=== PATIENT | male | born 1935 | race Caucasian/White ===

== ENCOUNTER → 2018-04-06 09:03 | Outpatient (CLI) | payer MEDICARE, OTHER, SELFPAY ==
[2018-04-06 09:50] LABS: Add Manual Diff / Slide Review NO; Basophils Percent Auto 0.4 % (0-2); Eosinophils Percent Auto 0.8 % (2-4); Hemoglobin 15.4 g/dL (13.5-17.5); Lymphocytes Percent Auto 26.8 % (25-40); Mean Corpuscular HGB Conc 33.5 % (30-36); Mean Corpuscular Volume 86.5 fL (80-100); Monocytes Percent Auto 7.9 % (3-14); Neutrophils Absolute Auto 3800 /uL (3000-5900); Neutrophils Percent Auto 64.1 % (50-75); Platelet Count 199 X10^3/uL (150-400); Red Blood Cell Count 5.32 X10^6/uL (4.5-5.9); Red Cell Distribution Width 14.2 % (11.6-14.8); White Blood Cell Count 5.9 X10^3/uL (4.5-11.0)
[2018-04-06 10:25] LABS: Alanine Aminotransferase 22 IU/L (21-72); Albumin Globulin Ratio 1.3 (1.0-2.8); Alkaline Phosphatase 52 U/L (38-126); Aspartate Aminotransferase 20 IU/L (17-59); Bilirubin Total 0.7 mg/dL (0.2-1.3); Blood Urea Nitrogen 16 mg/dL (9-20); Calcium 9.3 mg/dL (8.4-10.2); Carbon Dioxide 29 mmol/L (22-32); Chloride 102 mmol/L (98-107); Cholesterol 174 mg/dL (140-199); Estimated Glomerular Filt Rate > 60.0 mL/min (>60); Glucose 99 mg/dL (80-110); HDL Cholesterol 57 mg/dL (40-60); HEMOLYSIS < 15 (0-50); LDL Cholesterol Calculated 94 mg/dL (<100); Potassium 4.6 mmol/L (3.4-5.1); Sodium 142 mmol/L (137-145); Triglycerides 115 mg/dL (35-150)
== END ==
PROVIDERS: Visit Provider Internal Medicine
DX: I10 Essential (primary) hypertension (principal); M15.0 Primary generalized (osteo)arthritis
CPT/HCPCS: 36415; 80053; 80061; 85025

== ENCOUNTER → 2018-09-28 08:41 | Outpatient (CLI) | payer MEDICARE, OTHER, SELFPAY ==
--- NOTE | 2018-09-28 | DI.MRI.S_ITS ---
PROCEDURE: MR LUMBAR SPINE WO CON INDICATIONS: LUMBAR REGION RADICULOPATHY TECHNIQUE: Noncontrast sagittal T1 spin echo and T2 fast echo, sagittal STIR, axial T1 and T2 fast spin echo through the lumbar spine. In cases with scoliosis, additional coronal T2 fast spin echo may be performed. COMPARISON: [facility], MR, MR LUMBAR SPINE WITHOUT CONTRAST, 08/17/2017, 15:29. FINDINGS: Image quality: Excellent. Alignment and Curvature: Levocurvature of lumbar spine Bone Marrow: Marrow is of normal overall signal. Multiple chronic appearing Schmorl's nodes. There is possible L5 compression fracture, although the appearance may be related to large Schmorl's node. Overall appearance is grossly unchanged. No acute marrow edema is seen. No acute vertebral body compression fractures. Spinal Cord: Conus medullaris terminates at the T12-L1 level. Visualized cord demonstrates normal signal and size. Paraspinous Soft Tissues: No paravertebral masses. Small T2 hyperintense presumed parapelvic cysts L1-L2: Broad-based right lateral disc bulge. Bilateral facet arthropathy. Mild central canal narrowing. There is partial effacement of the right lateral recess. The left lateral recess appears grossly patent. Severe right and moderate left foraminal narrowing. No interval change L2-L3: Broad-based posterior disc bulge and bilateral facet arthropathy. Mild central canal narrowing. Partial effacement of the lateral recesses, although mildly asymmetric right greater than left however this appears unchanged. Mild left and moderate right foraminal narrowing, no interval change L3-L4: Broad-based posterior disc bulge and bilateral facet disease. Dorsal epidural lipomatosis also present and there is moderate to severe central canal narrowing. There is also symmetric moderate effacement of both lateral recesses, as before. Severe right and moderate left foraminal stenoses without interval change. L4-L5: Broad-based posterior disc bulge and bilateral facet arthropathy. Mild central canal narrowing. There is mild dorsal epidural lipomatosis. Mild symmetric partial effacement of both lateral recesses. Severe left and mild right foraminal narrowing, no interval change L5-S1: Mild broad-based posterior disc bulge and bilateral facet arthropathy. No high-grade canal stenosis. The lateral recesses appear grossly patent. Moderate to severe bilateral foraminal stenoses primarily within the cephalocaudad dimension as before. No interval change. IMPRESSION: Overall, no interval change in multilevel lumbar disc degeneration since 08/17/17 as detailed above by spinal level. Levoscoliosis. Dictated by: Tono Harrison M.D. on 09/28/2018 at 11:15 Approved by: Tono Harrison M.D. on 09/28/2018 at 11:33
== END ==
PROVIDERS: PCP Internal Medicine; Visit Provider Physical Medicine & Rehabilitation Pain Medicine
DX: M51.16 Intervertebral disc disorders with radiculopathy, lumbar region (principal); M51.17 Intervertebral disc disorders with radiculopathy, lumbosacral region; M48.061 Spinal stenosis, lumbar region without neurogenic claudication; M48.07 Spinal stenosis, lumbosacral region; M41.86 Other forms of scoliosis, lumbar region; M47.26 Other spondylosis with radiculopathy, lumbar region; M47.27 Other spondylosis with radiculopathy, lumbosacral region
CPT/HCPCS: 72148

== ENCOUNTER → 2019-10-02 11:11 | Outpatient (CLI) | payer MEDICARE, OTHER, SELFPAY ==
[2019-10-02 12:02] LABS: Add Manual Diff / Slide Review NO; Basophils Absolute Auto 0 /uL (0-100); Basophils Percent Auto 0.2 % (0-2); Eosinophils Absolute Auto 0 /uL (0-450); Eosinophils Percent Auto 0.7 % (2-4); Hematocrit 44.4 % (41-53); Hemoglobin 14.7 g/dL (13.5-17.5); Lymphocytes Absolute Auto 2000 /uL (1100-4500); Lymphocytes Percent Auto 29.8 % (25-40); Mean Corpuscular HGB Conc 33.2 % (30-36); Mean Corpuscular Hemoglobin 27.9 PG (26-34); Monocytes Absolute Auto 400 /uL (0-900); Monocytes Percent Auto 6.5 % (3-14); Neutrophils Absolute Auto 4100 /uL (1500-7000); Neutrophils Percent Auto 62.8 % (50-75); Platelet Count 219 X10^3/uL (150-400); Red Blood Cell Count 5.28 X10^6/uL (4.5-5.9); Red Cell Distribution Width 14.7 % (11.6-14.8); White Blood Cell Count 6.6 X10^3/uL (4.5-11.0)
[2019-10-02 12:18] LABS: Carbon Dioxide 27 mmol/L (22-32); Chloride 102 mmol/L (98-107); HEMOLYSIS < 15 (0-50); Potassium 4.1 mmol/L (3.4-5.1); Sodium 140 mmol/L (137-145)
== END ==
PROVIDERS: PCP Internal Medicine; Referring Provider Orthopaedic Surgery; Visit Provider Orthopaedic Surgery
DX: Z01.818 Encounter for other preprocedural examination (principal); Z01.812 Encounter for preprocedural laboratory examination
CPT/HCPCS: 36415; 80051; 85025; 93005

== ENCOUNTER → 2019-10-10 09:04 | Outpatient (CLI) | payer MEDICARE, OTHER, SELFPAY ==
--- NOTE | 2019-10-10 09:07 | DI.RAD.S_ITS ---
PROCEDURE: XR RIBS LT MIN 3V W CXR1V INDICATIONS: pain to anterior ribs 10-12, r/o fx TECHNIQUE: 2 views of the left ribs were acquired, along with a single view chest. COMPARISON: None. FINDINGS: Surgical changes and devices: None. Bones and chest wall: No fractures or dislocations. No suspicious bony lesions. Overlying soft tissues appear unremarkable. Lungs and pleura: No pleural effusions or pneumothorax. Lungs appear clear. Mediastinum: Mediastinal contours appear normal. Heart size is normal. Convex right thoracic spine scoliosis. IMPRESSION: No displaced rib fracture. Dictated by: Karen Hooper MD, PhD on 10/10/2019 at 9:59 Approved by: Karen Hooper MD, PhD on 10/10/2019 at 10:00
--- NOTE | 2019-10-10 09:07 | DI.RAD.S_ITS ---
PROCEDURE: XR HAND RT MIN 3V INDICATIONS: swelling/ecchymosis 3rd and 4th digit, r/o fx TECHNIQUE: 3 views of the hand(s) acquired. [facility]+ VIEWS BILATERAL, 02/13/2019, 13:52. FINDINGS: Bones: No acute fractures or dislocations. Carpal bones are normally aligned. No suspicious bony lesions. First and third MCP joint osteoarthritis. Soft tissues: No suspicious soft tissue calcifications. IMPRESSION: No fracture. No acute osseous lesion. If symptoms and/or clinical suspicion for pathology persists, further assessment with repeat radiographs (7-10 days) or advanced imaging (e.g. CT, MRI or bone scan) may be helpful. Dictated by: Karen Hooper MD, PhD on 10/10/2019 at 10:00 Approved by: Karen Hooper MD, PhD on 10/10/2019 at 10:03
== END ==
PROVIDERS: PCP Internal Medicine; Referring Provider Physician Assistant; Visit Provider Physician Assistant
DX: S20.212A Contusion of left front wall of thorax, initial encounter (principal); S60.221A Contusion of right hand, initial encounter; X58.XXXA Exposure to other specified factors, initial encounter
CPT/HCPCS: 71101; 73130

== ENCOUNTER 2020-12-15 23:24 | Observation (INO) | payer MEDICARE, OTHER, SELFPAY ==
--- NOTE | 2020-12-15 23:29 | DI.CT.S_ITS ---
PROCEDURE: CT HEAD/BRAIN WO CON INDICATIONS: Trauma TECHNIQUE: Noncontrast 4.5 mm thick angled axial sections acquired from the foramen magnum to the vertex, with coronal and sagittal reformats. For radiation dose reduction, the following was used: automated exposure control, adjustment of mA and/or kV according to patient size. COMPARISON: [facility], MR, STROKE PROTOCOL (PNL), 04/29/2011, 9:38. FINDINGS: Image quality: Excellent. CSF spaces: Basal cisterns are patent. No extra-axial fluid collections. The ventricles are symmetric in size and shape. Brain: No intracranial bleeds or masses. There is cerebral volume loss for age, with resultant ventricular and sulcal prominence. There are periventricular and deep white matter chronic small vessel ischemic changes. There is intracranial internal carotid artery atherosclerosis. Skull and face: Calvarium and visualized facial bones appear intact, without suspicious lesions. Sinuses: Visualized sinuses and mastoids are clear. IMPRESSION: No acute intracranial disease process. Dictated by: Karen Hooper MD, PhD on 12/16/2020 at 6:55 Approved by: Karen Hooper MD, PhD on 12/16/2020 at 6:56
--- NOTE | 2020-12-15 23:29 | DI.CT.S_ITS ---
PROCEDURE: CT CERVICAL SPINE WO CON INDICATIONS: Trauma TECHNIQUE: Noncontrast 3 mm thick sections acquired from the skull base to the T4 level. Sagittal and coronal reformats were then constructed. For radiation dose reduction, the following was used: automated exposure control, adjustment of mA and/or kV according to patient size. COMPARISON: None. FINDINGS: Image quality: Excellent. Bones: No cervical spine fractures or dislocations. Nondisplaced fracture of the anterior cortex of the posterior right 6th rib at the costovertebral junction. Visualized superior ribs are intact. Soft tissues: Prevertebral soft tissues are normal in thickness. No paravertebral hematomas. No apical pneumothoraces. 1.2 centimeter subpleural nodule noted in the right lung apex. Partially visualized hyperdense fluid collection noted in the right hemithorax concerning for hemothorax. IMPRESSION: 1. No cervical spine fracture. No acute osseous lesion. If symptoms and/or clinical suspicion for pathology persists, evaluation with MRI should be considered for further assessment. 2. Nondisplaced fracture of the posterior right 5th rib at the costovertebral junction. 3. Partially visualized right-sided pleural fluid collection which has slightly increased density concerning for hemothorax. 4. 1.2 centimeter right upper lobe nodule. Recommend follow-up CT scan of the chest in 3 months. Fleischner Society criteria for SOLID lung nodule followup. Nodule size (mm)Low-risk patientHigh-risk patient<6 (single or multiple)No routine followup.Optional CT at 12 months. 6-8 (single or multiple)CT at 6-12 months, then optional CT at 18-24 mo.CT at 6-12 months, then CT at 18-24 months. >8 (single)CT at 3 months, PET-CT, or biopsy. Same as for low-risk pts. >8 (multiple)CT at 3-6 months, then optional CT at 18-24 mo.CT at 3-6 months, then CT at 18-24 months. Recommendations do not apply to lung cancer screening, patients with immunosuppression, or patients with known primary cancer. Dictated by: Karen Hooper MD, PhD on 12/16/2020 at 7:27 Approved by: Karen Hooper MD, PhD on 12/16/2020 at 7:35
--- NOTE | 2020-12-15 23:29 | DI.CT.S_ITS ---
PROCEDURE: CT CHEST ABD PEL W CON INDICATIONS: Trauma TECHNIQUE: After the administration of intravenous contrast, 5 mm thick sections acquired from the lung apices to the symphysis. 2.5 mm thick coronal and sagittal reformats were acquired. Additional 7 mm thick coronal maximum intensity projection (MIP) reformats acquired through the lungs. Optional 10-minute delayed imaging may be performed from the kidneys to the bladder. For radiation dose reduction, the following was used: automated exposure control, adjustment of mA and/or kV according to patient size. COMPARISON: [facility], CT, CT CERVICAL SPINE WO CON, 12/15/2020, 23:43. FINDINGS: Image quality: Excellent. CHEST: Lungs: No pulmonary contusions or lacerations. No acute airspace opacities. No pneumothorax or hemothorax. Central and peripheral airways appear patent and normal in caliber. Note is made of what appears to be right lung base atelectasis adjacent to a small posterior water density pleural effusion. Mediastinum: No mediastinal hematomas. Heart size is normal. No pericardial effusion. Thoracic aorta and pulmonary arteries demonstrate normal size and enhancement. No mediastinal or hilar adenopathy. Esophagus is normal in caliber. No hiatal hernia. Chest wall: There are several right mid lateral acute appearing rib fractures. No subcutaneous emphysema. No axillary or supraclavicular adenopathy. Thyroid gland appears normal where well seen. Note is made of a T11 mild wedge compression fracture, chronic in appearance ABDOMEN: Solid organs: Liver is normal in size and enhancement, without lacerations. Gallbladder appears resected. Biliary system is non-dilated. Pancreas enhances normally, without transection. Spleen is normal in size and enhancement, without lacerations. No adrenal hematomas. Both kidneys enhance normally, without hydronephrosis or lacerations. Peritoneum and bowel: No free fluid or air. Unenhanced bowel loops demonstrate normal wall thickness and caliber. Nodes and vessels: No retroperitoneal or mesenteric adenopathy. Aorta and inferior vena cava are normal in size and enhancement. Miscellaneous: No ventral hernias. PELVIS: Genitourinary: Bladder wall thickness is normal. Miscellaneous: No inguinal hernias or adenopathy. Note is made of L3, L4, and L5 compression fractures, mild at the superior endplate of L4 and moderate at the inferior endplates of L 3 and L5. These also appear chronic. Bones: Pelvic ring and hip joints appear intact. No vertebral compression fractures. IMPRESSION: Acute appearing right lateral mid chest rib fractures, without pneumothorax or significant displacement. Small adjacent pleural water density effusion with posterior right lung base atelectasis. Note is made of a 7 x 10 mm focal radiodensity at the right apex, extending to the pleural surface. This is of indeterminate etiology, and does not contain internal calcification that would establish likelihood of granulomatous origin. It could simply represent lung scarring extending to the pleural surface. This structure should be further assessed in [address] scanning, and if it were to enlarge PET-CT scanning would be recommended at that time. No visceral injury found. Several scattered chronic appearing thoracic and lumbosacral spine compression fractures. No secondary spinal stenosis associated. The emergency room physician was personally notified of these findings. Dictated by: Edmund Diaz M.D. on 12/16/2020 at 10:15 Approved by: Edmund Diaz M.D. on 12/16/2020 at 10:26
[2020-12-15 23:32] VITALS: BP 134/74; PULSE 71; RESP 22; TEMP 36.3; O2SAT 99
[2020-12-16 00:21] LABS: Add Manual Diff / Slide Review NO; Basophils Absolute Auto 100 /uL (0-100); Basophils Percent Auto 0.5 % (0-2); Eosinophils Absolute Auto 100 /uL (0-450); Eosinophils Percent Auto 0.8 % (2-4); Hematocrit 40.7 % (41-53); Hemoglobin 13.4 g/dL (13.5-17.5); Lymphocytes Absolute Auto 1400 /uL (1100-4500); Mean Corpuscular HGB Conc 32.8 % (30-36); Mean Corpuscular Hemoglobin 28.6 PG (26-34); Mean Corpuscular Volume 87.2 fL (80-100); Monocytes Absolute Auto 700 /uL (0-900); Monocytes Percent Auto 6.8 % (3-14); Neutrophils Absolute Auto 8500 /uL (1500-7000); Neutrophils Percent Auto 78.9 % (50-75); Platelet Count 161 X10^3/uL (150-400); Red Blood Cell Count 4.68 X10^6/uL (4.5-5.9); Red Cell Distribution Width 13.9 % (11.6-14.8); White Blood Cell Count 10.8 X10^3/uL (4.5-11.0)
[2020-12-16 00:24] LABS: Prothrombin Time 11.8 SECONDS (10.1-12.7)
[2020-12-16 00:27] LABS: PTT Partial Thromboplastin Tim 27 SECONDS (26.4-36.2)
[2020-12-16 00:29] LABS: Alanine Aminotransferase 16 IU/L (<50); Albumin 3.6 g/dL (3.5-5.0); Albumin Globulin Ratio 1.2 (1.0-2.8); Alkaline Phosphatase 55 U/L (38-126); Aspartate Aminotransferase 30 IU/L (17-59); BUN Creatinine Ratio 20.5 (6-22); Bilirubin Total 0.6 mg/dL (0.2-1.3); Blood Urea Nitrogen 23 mg/dL (9-20); Calcium 9.4 mg/dL (8.4-10.2); Carbon Dioxide 24 mmol/L (22-32); Chloride 105 mmol/L (98-107); Estimated Glomerular Filt Rate > 60.0 mL/min (>60); Globulin 3.1 g/dL (1.7-4.1); Glucose 115 mg/dL (80-110); HEMOLYSIS < 15 (0-50); Lipase 54 U/L (23-300); Potassium 4.3 mmol/L (3.4-5.1); Sodium 137 mmol/L (137-145); Total Protein 6.7 g/dL (6.3-8.2)
--- NOTE | 2020-12-16 00:29 | ED_ITS ---
HPI - Fall General Chief Complaint: Fall Stated Complaint: GLF Time Seen by Provider: 12/15/20 23:25 Source: patient and EMS Mode of arrival: EMS Limitations: no limitations History of Present Illness HPI Narrative: 85-year-old male nonsmoker with history of hypertension, GERD presents with EMS and a chief complaint of a ground level fall and multiple injuries. He states that he was walking in his apartment when his right foot got caught up and he tripped and fell onto his right side. He struck his head right-sided chest and abdomen. He has an abrasion on his forehead but did not lose consciousness and has no nausea or vomiting. He has no neurologic symptoms such as blurred vision, trouble with speech or extremity weakness. He takes no blood thinners. He does have significant right-sided chest pain, particularly with any breathing. This pain is 10/10, sharp and stabbing and extends along his right flank into his back. His right lower abdomen is also sore. He denies any pain in his hips, knees, ankles, shoulders, elbows or wrist. MD complaint: fall Onset (ago): minute(s) Fall from: standing Fall witnessed: no Place fall occurred: home Loss of consciousness: none Prolonged down time: no Symptoms prior to fall: none Context: tripped/slipped Location of injury: head, chest and abdomen Severity: severe Quality: burning and stabbing Associated symptoms (after fall): chest pain and shortness of breath Related Data Home Medications Medication Instructions Recorded Confirmed aspirin 81 mg tablet,delayed 81 mg PO DAILY 10/10/19 10/10/19 release losartan 25 mg tablet 25 mg PO DAILY 10/10/19 10/10/19 naproxen 375 mg tablet 375 mg PO BID PRN 10/10/19 10/10/19 pantoprazole 40 mg tablet,delayed 40 mg PO DAILY 10/10/19 10/10/19 release sertraline 50 mg tablet 50 mg PO DAILY 10/10/19 10/10/19 Allergies Allergy/AdvReac Type Severity Reaction Status Date / Time No Known Drug Allergies Allergy Unverified 10/10/19 08:34 Review of Systems Constitutional Constitutional: Denies chills, Denies fatigue, Denies fever(s), Denies frequent falls, Denies lethargy and Denies weakness Eyes Eyes: Denies change in vision, Denies eye discharge, Denies irritation and Denies loss of vision ENT Ears, Nose, Mouth, and Throat: Denies change in voice, Denies dizziness, Denies neck pain, Denies sore throat and Denies throat swelling Cardiovascular Cardiovascular: Reports chest pain, Denies irregular heart rhythm, Denies lightheadedness, Denies palpitations, Denies dyspnea, Denies dyspnea on exertion and Denies orthopnea Respiratory Respiratory: Denies cough, Denies dyspnea, Denies dyspnea on exertion and Denies wheezing Gastrointestinal Gastrointestinal: Denies abdominal pain, Denies change in bowel habits, Denies diarrhea, Denies nausea and Denies vomiting Musculoskeletal Musculoskeletal: Denies neck pain and Denies numbness Integumentary/Breasts Skin/Breast: Denies pruritus, Denies erythema, Denies rash and Denies wounds Neurologic Neurologic: Denies behavioral changes, Denies confusion, Denies dizziness, Denies frequent falls, Denies loss of vision, Denies numbness and Denies weakness Psychiatric Psychiatric: Denies anxiety, Denies behavioral changes, Denies confusion, Denies depression, Denies homicidal ideation and Denies suicidal ideation Endocrine Endocrine: Denies fatigue, Denies flushing and Denies palpitations Hematologic/Lymphatic Hematologic/Lymphatic: Denies easy bruising Allergic/Immunologic Allergic/Immunologic: Denies urticaria, Denies throat swelling and Denies wheezing Patient History Medical History Contusion of rib on left side Contusion of right hand Social History Smoking Status: Never smoker Smoking Status: Never smoker Exam Narrative Exam Narrative: GENERAL: [85] year old patient appears stated age. Well- nourished, well-developed patient, in mild distress. GCS 15 HEAD: Superficial abrasion on right forehead, no evidence of depressed skull fracture or hematoma. EYES: Pupils equal round and reactive. Extraocular motions intact. No hyphema No scleral icterus. No injection or drainage. ENT: Nose without bleeding, purulent drainage. No nasal septal hematoma, throat without erythema, tonsillar hypertrophy or exudate. Airway patent. NECK: Trachea midline. Non tender CARDIOVASCULAR: Regular rate and rhythm without murmurs, gallops, or rubs. Severe right-sided lower and lateral chest and rib pain with possible crepitance. Pain in the right lower abdomen as well. RESPIRATORY: Clear to auscultation. Breath sounds equal bilaterally. No wheezes, rales, or rhonchi. GASTROINTESTINAL: Abdomen soft, non-tender, nondistended. EXTREMITIES: No edema or joint tenderness. BACK: Nontender without deformity or crepitance. No flank tenderness. NEURO: AOx3. SKIN: No rash or erythema of visible areas Initial Vital Signs Initial Vital Signs: Vital Signs Temperature 97.4 F L 12/15/20 23:32 Pulse Rate 71 12/15/20 23:32 Respiratory Rate 22 12/15/20 23:32 Blood Pressure 134/74 12/15/20 23:32 Pulse Oximetry 99 12/15/20 23:32 Course Course Course Narrative: Patient remains hemodynamically stable and does not have any supplemental oxygen requirements, however given the presence of multiple right- sided rib fractures the patient is activated as a modified trauma and will be admitted into the hospital for observation and stabilization. Orders Ordered: ED Orders 12/15/20 23:28 Complete Blood Count AUTO DIFF Stat Comprehensive Metabolic Panel Stat Lipase Stat Partial Thromboplastin Time Stat Prothrombin Time INR Stat Type and Screen Stat EKG-12 Lead Stat 12/15/20 23:29 CT cervical spine wo con Stat CT chest abd pel w con Stat CT head/brain wo con Stat 12/16/20 00:50 COVID19 - ADMIT (ENVIRONMENTAL AID swab/PCR) Stat Fentanyl (Fentanyl 100 Mcg/2 Ml Inj) 25 mcg IV Q1H PRN PRN Reason: Pain, Severe (7-10) Last Admin: 12/16/20 01:32 Dose: 25 mcg Documented by: MALDONADO Consultations Consultation #1: call to Trauma ([place]) will remain as hospice care consultant, recommends admission to medicine Consultation #2: Call to hospitalist, happy to admit Vital Signs Vital signs: Vital Signs - 8 hr 12/15/20 23:32 12/16/20 01:00 Temperature 97.4 F L Pulse Rate 71 69 Respiratory Rate 22 18 Blood Pressure 134/74 128/64 Pulse Oximetry 99 94 MDM - Fall Lab Data Result diagrams: 12/16/20 00:05 12/16/20 00:05 Labs: Lab Results 12/16/20 12/16/20 12/16/20 Range/Units 00:05 00:05 00:05 WBC 10.8 (4.5-11.0) X10^3/uL RBC 4.68 (4.5-5.9) X10^6/uL Hgb 13.4 L (13.5-17.5) g/dL Hct 40.7 L (41-53) % MCV 87.2 (80-100) fL MCH 28.6 (26-34) PG MCHC 32.8 (30-36) % RDW 13.9 (11.6-14.8) % Plt Count 161 (150-400) X10^3/uL Neut % (Auto) 78.9 H (50-75) % Lymph % (Auto) 13.0 L (25-40) % Barbour % (Auto) 6.8 (3-14) % Eos % (Auto) 0.8 L (2-4) % Baso % (Auto) 0.5 (0-2) % Neut # (Auto) 8500 H (9216-3087) /uL Lymph # (Auto) 1400 (5309-8260) /uL Barbour # (Auto) 700 (0-900) /uL Eos # (Auto) 100 (0-450) /uL Baso # (Auto) 100 (0-100) /uL PT 11.8 (10.1-12.7) SECONDS INR 1.0 (0.9-1.3) APTT 27 (26.4-36.2) SECONDS Sodium 137 (137-145) mmol/L Potassium 4.3 (3.4-5.1) mmol/L Chloride 105 (98-107) mmol/L Carbon Dioxide 24 (22-32) mmol/L BUN 23 H (9-20) mg/dL Creatinine 1.12 (0.66-1.25) mg/dL Estimated GFR > 60.0 (>60) mL/min BUN/Creatinine Ratio 20.5 (6-22) Glucose 115 H (80-110) mg/dL Calcium 9.4 (8.4-10.2) mg/dL Total Bilirubin 0.6 (0.2-1.3) mg/dL AST 30 (17-59) IU/L ALT 16 (<50) IU/L Alkaline Phosphatase 55 (38-126) U/L Total Protein 6.7 (6.3-8.2) g/dL Albumin 3.6 (3.5-5.0) g/dL Globulin 3.1 (1.7-4.1) g/dL Albumin/Globulin Ratio 1.2 (1.0-2.8) Lipase 54 (23-300) U/L SARS-CoV-2 (PCR) (Negative) Blood Type Antibody Screen 12/16/20 12/16/20 Range/Units 00:05 00:50 WBC (4.5-11.0) X10^3/uL RBC (4.5-5.9) X10^6/uL Hgb (13.5-17.5) g/dL Hct (41-53) % MCV (80-100) fL MCH (26-34) PG MCHC (30-36) % RDW (11.6-14.8) % Plt Count (150-400) X10^3/uL Neut % (Auto) (50-75) % Lymph % (Auto) (25-40) % Barbour % (Auto) (3-14) % Eos % (Auto) (2-4) % Baso % (Auto) (0-2) % Neut # (Auto) (5865-1781) /uL Lymph # (Auto) (9361-5374) /uL Barbour # (Auto) (0-900) /uL Eos # (Auto) (0-450) /uL Baso # (Auto) (0-100) /uL PT (10.1-12.7) SECONDS INR (0.9-1.3) APTT (26.4-36.2) SECONDS Sodium (137-145) mmol/L Potassium (3.4-5.1) mmol/L Chloride (98-107) mmol/L Carbon Dioxide (22-32) mmol/L BUN (9-20) mg/dL Creatinine (0.66-1.25) mg/dL Estimated GFR (>60) mL/min BUN/Creatinine Ratio (6-22) Glucose (80-110) mg/dL Calcium (8.4-10.2) mg/dL Total Bilirubin (0.2-1.3) mg/dL AST (17-59) IU/L ALT (<50) IU/L Alkaline Phosphatase (38-126) U/L Total Protein (6.3-8.2) g/dL Albumin (3.5-5.0) g/dL Globulin (1.7-4.1) g/dL Albumin/Globulin Ratio (1.0-2.8) Lipase (23-300) U/L SARS-CoV-2 (PCR) Negative (Negative) Blood Type A Positive Antibody Screen Negative Imaging Data CT scan - head: Radiologist's Impression: No acute intracranial findings CT - cervical spine: Radiologist's Impression: No bony abnormality CT scan - chest: Radiologist's Impression: Minimally displaced right 7th, 8th, 9th, 12th rib. Multiple chronic wedge compression fracture deformities. Small right pleural effusion, inconsistent with blood products and thought to be chronic CT scan - abdomen/pelvis: Radiologist's Impression: No acute pathology Discharge Plan Departure Patient Disposition: Admitted as Observation Clinical Impression: Multiple rib fractures, Abrasion of scalp, Fall, Pleural effusion Prescriptions: No Action losartan 25 mg tablet 25 mg PO DAILY RF: 0 sertraline 50 mg tablet 50 mg PO DAILY RF: 0 naproxen 375 mg tablet 375 mg PO BID PRNRF: 0 pantoprazole 40 mg tablet,delayed release (DR/EC) 40 mg PO DAILY RF: 0 aspirin [Adult Low Dose Aspirin] 81 mg tablet,delayed release (DR/EC) 81 mg PO DAILY RF: 0 Referrals: Aleksandr Morin MD [Primary Care Provider] -
[2020-12-16 01:00] VITALS: BP 128/64; PULSE 69; RESP 18; O2SAT 94
[2020-12-16] MEDS: fentaNYL 100 MCG/2 ML INJ 25 MCG IV (01:32)
[2020-12-16 01:39] LABS: COVID19 - ADMIT (NP swab/PCR) Negative (Negative)
[2020-12-16 02:00] VITALS: O2SAT 93
[2020-12-16 02:16] LABS: Magnesium 1.8 mg/dL (1.6-2.3)
--- NOTE | 2020-12-16 02:38 | ED_ITS ---
HPI - Fall General Chief Complaint: Fall Stated Complaint: GLF Time Seen by Provider: 12/15/20 23:25 Source: patient and EMS Mode of arrival: EMS History of Present Illness Place fall occurred: home Context: tripped/slipped Associated symptoms (after fall): chest pain and shortness of breath Related Data Home Medications Medication Instructions Recorded Confirmed aspirin 81 mg tablet,delayed 81 mg PO DAILY 10/10/19 12/16/20 release losartan 25 mg tablet 25 mg PO DAILY 10/10/19 12/16/20 naproxen 375 mg tablet 375 mg PO BID PRN 10/10/19 12/16/20 pantoprazole 40 mg tablet,delayed 40 mg PO DAILY 10/10/19 12/16/20 release sertraline 50 mg tablet 50 mg PO DAILY 10/10/19 12/16/20 Allergies Allergy/AdvReac Type Severity Reaction Status Date / Time No Known Drug Allergies Allergy Unverified 10/10/19 08:34 Review of Systems Constitutional Constitutional: Denies frequent falls and Denies weakness Eyes Eyes: Denies loss of vision ENT Ears, Nose, Mouth, and Throat: Denies dizziness Musculoskeletal Musculoskeletal: Denies numbness Neurologic Neurologic: Denies behavioral changes, Denies confusion, Denies dizziness, Denies frequent falls, Denies loss of vision, Denies numbness and Denies weakness Psychiatric Psychiatric: Denies behavioral changes and Denies confusion Patient History Medical History Contusion of rib on left side Contusion of right hand Social History Smoking Status: Never smoker Smoking Status: Never smoker Exam Initial Vital Signs Initial Vital Signs: Vital Signs Temperature 97.4 F L 12/15/20 23:32 Pulse Rate 71 12/15/20 23:32 Respiratory Rate 22 12/15/20 23:32 Blood Pressure 134/74 12/15/20 23:32 Pulse Oximetry 99 12/15/20 23:32 Course Orders Ordered: ED Orders 12/15/20 23:28 Complete Blood Count AUTO DIFF Stat Comprehensive Metabolic Panel Stat Lipase Stat Partial Thromboplastin Time Stat Prothrombin Time INR Stat Type and Screen Stat EKG-12 Lead Stat 12/15/20 23:29 CT cervical spine wo con Stat CT chest abd pel w con Stat CT head/brain wo con Stat 12/16/20 00:05 Magnesium Urgent 12/16/20 00:50 COVID19 - 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) Stat 12/16/20 02:00 Education, smoking cessation ONGOING 12/16/20 05:00 Complete Blood Count AUTO DIFF DAILY Comprehensive Metabolic Panel DAILY 12/17/20 05:00 Complete Blood Count AUTO DIFF DAILY 12/18/20 05:00 Complete Blood Count AUTO DIFF DAILY Discontinued Medications Acetaminophen (Acetaminophen 325 Mg Tablet) 650 mg PO Q6HR PRN PRN Reason: Fever/Mild Pain (1-3) Hydrocodone Bitart/Acetaminophen (Hydrocodone/Acet 5/325 Tablet) 2 tab PO Q4HR PRN PRN Reason: Pain, Severe (7-10) Al Hydrox/Mg Hydrox/Simethicone (Mag Hydrox/Alum/Simeth 30 Ml Udc) 30 ml PO Q6HR PRN PRN Reason: Dyspepsia Docusate Sodium (Docusate 100 Mg Capsule) 100 mg PO BID [facility] Enoxaparin Sodium (Enoxaparin 40 Mg/0.4 Ml Syringe) 40 mg SUBCUT DAILY [facility] Fentanyl (Fentanyl 100 Mcg/2 Ml Inj) 25 mcg IV Q1H PRN PRN Reason: Pain, Severe (7-10) Last Admin: 12/16/20 01:32 Dose: 25 mcg Documented by: MALDONADO Hydromorphone HCl (Hydromorphone 1 Mg Inj) 1 mg IV Q6H PRN PRN Reason: Pain, Severe (7-10) Lactated Ringer's (Lactated Ringers) 1,000 mls @ 60 mls/hr IV CONT [facility] Naloxone HCl (Naloxone 0.4 Mg/Ml Vial) 0.2 mg IV Q2MIN PRN PRN Reason: Opiate Reversal Ondansetron HCl (Ondansetron 4 Mg Odt) 4 mg PO Q8HR PRN PRN Reason: Nausea And Vomiting Sennosides (Sennosides 8.6 Mg Tablet) 17.2 mg PO BEDTIME [facility] Vital Signs Vital signs: Vital Signs - 8 hr 12/15/20 23:32 12/16/20 01:00 Temperature 97.4 F L Pulse Rate 71 69 Respiratory Rate 22 18 Blood Pressure 134/74 128/64 Pulse Oximetry 99 94 MDM - Fall Lab Data Result diagrams: 12/16/20 00:05 12/16/20 00:05 Labs: Lab Results 12/16/20 12/16/20 12/16/20 Range/Units 00:05 00:05 00:05 WBC 10.8 (4.5-11.0) X10^3/uL RBC 4.68 (4.5-5.9) X10^6/uL Hgb 13.4 L (13.5-17.5) g/dL Hct 40.7 L (41-53) % MCV 87.2 (80-100) fL MCH 28.6 (26-34) PG MCHC 32.8 (30-36) % RDW 13.9 (11.6-14.8) % Plt Count 161 (150-400) X10^3/uL Neut % (Auto) 78.9 H (50-75) % Lymph % (Auto) 13.0 L (25-40) % [place] % (Auto) 6.8 (3-14) % Eos % (Auto) 0.8 L (2-4) % Baso % (Auto) 0.5 (0-2) % Neut # (Auto) 8500 H (9444-6839) /uL Lymph # (Auto) 1400 (4464-2392) /uL [place] # (Auto) 700 (0-900) /uL Eos # (Auto) 100 (0-450) /uL Baso # (Auto) 100 (0-100) /uL PT 11.8 (10.1-12.7) SECONDS INR 1.0 (0.9-1.3) APTT 27 (26.4-36.2) SECONDS Sodium 137 (137-145) mmol/L Potassium 4.3 (3.4-5.1) mmol/L Chloride 105 (98-107) mmol/L Carbon Dioxide 24 (22-32) mmol/L BUN 23 H (9-20) mg/dL Creatinine 1.12 (0.66-1.25) mg/dL Estimated GFR > 60.0 (>60) mL/min BUN/Creatinine Ratio 20.5 (6-22) Glucose 115 H (80-110) mg/dL Calcium 9.4 (8.4-10.2) mg/dL Magnesium (1.6-2.3) mg/dL Total Bilirubin 0.6 (0.2-1.3) mg/dL AST 30 (17-59) IU/L ALT 16 (<50) IU/L Alkaline Phosphatase 55 (38-126) U/L Total Protein 6.7 (6.3-8.2) g/dL Albumin 3.6 (3.5-5.0) g/dL Globulin 3.1 (1.7-4.1) g/dL Albumin/Globulin Ratio 1.2 (1.0-2.8) Lipase 54 (23-300) U/L SARS-CoV-2 (PCR) (Negative) Blood Type Antibody Screen 12/16/20 12/16/20 12/16/20 Range/Units 00:05 00:05 00:50 WBC (4.5-11.0) X10^3/uL RBC (4.5-5.9) X10^6/uL Hgb (13.5-17.5) g/dL Hct (41-53) % MCV (80-100) fL MCH (26-34) PG MCHC (30-36) % RDW (11.6-14.8) % Plt Count (150-400) X10^3/uL Neut % (Auto) (50-75) % Lymph % (Auto) (25-40) % [place] % (Auto) (3-14) % Eos % (Auto) (2-4) % Baso % (Auto) (0-2) % Neut # (Auto) (4214-0449) /uL Lymph # (Auto) (6062-5572) /uL [place] # (Auto) (0-900) /uL Eos # (Auto) (0-450) /uL Baso # (Auto) (0-100) /uL PT (10.1-12.7) SECONDS INR (0.9-1.3) APTT (26.4-36.2) SECONDS Sodium (137-145) mmol/L Potassium (3.4-5.1) mmol/L Chloride (98-107) mmol/L Carbon Dioxide (22-32) mmol/L BUN (9-20) mg/dL Creatinine (0.66-1.25) mg/dL Estimated GFR (>60) mL/min BUN/Creatinine Ratio (6-22) Glucose (80-110) mg/dL Calcium (8.4-10.2) mg/dL Magnesium 1.8 (1.6-2.3) mg/dL Total Bilirubin (0.2-1.3) mg/dL AST (17-59) IU/L ALT (<50) IU/L Alkaline Phosphatase (38-126) U/L Total Protein (6.3-8.2) g/dL Albumin (3.5-5.0) g/dL Globulin (1.7-4.1) g/dL Albumin/Globulin Ratio (1.0-2.8) Lipase (23-300) U/L SARS-CoV-2 (PCR) Negative (Negative) Blood Type A Positive Antibody Screen Negative Discharge Plan Departure Patient Disposition: Admitted as Observation Clinical Impression: Pleural effusion Multiple rib fractures Qualifiers: Encounter type: initial encounter Fracture type: closed Laterality: right Qualified Code(s): S22.41XA - Multiple fractures of ribs, right side, initial e ncounter for closed fracture Abrasion of scalp Qualifiers: Encounter type: initial encounter Qualified Code(s): S00.01XA - Abrasion of scalp, initial encounter Fall Qualifiers: Encounter type: initial encounter Qualified Code(s): W19.XXXA - Unspecified fall, initial encounter
--- NOTE | 2020-12-16 02:39 | P.HP_ITS ---
History of Present Illness History of Present Illness Date Patient Seen: 12/16/20 Time Patient Seen: 02:06 Chief complaint: GLF Narrative: Patient is a 85-year-old male Blake Perez who presented to the ED via EMS with a chief complaint of a ground level fall and multiple injuries. He states that he was walking in his apartment at [facility] when his right foot got caught up and he tripped and fell onto his right side. He struck his head right-sided chest and abdomen. He has an abrasion on his forehead and right outer nare but did not lose consciousness and denies nausea, vomiting, neurologic symptoms, blurred vision, trouble with speech or extremity weakness. He takes no blood thinners. He denies any pain in his hips, knees, ankles, shoulders, elbows or wrist. Patient notes that his pain has improved with pain medication in the ED. he denies shortness of breath, chest pain, or pain with deep breathing at this time. Patient a history anal squamous cell carcinoma, skin cancer, bilateral cataract surgery, left hip reconstruction, knee surgery, colostomy placement in 2019, hypertension and GERD. Patient's pain is a currently 03/08. Patient's vitals upon admit temp 97.4?, BP 120/64, HR 69, RR 18, O2 saturation 94% on room air. Patient's labs HGB 13.4, HCT 40.7, BUN 23, glucose 115, patient was typed and cross and has A positive blood. CT scan - head:No acute intracranial findings, CT - cervical spine: No bony abnormality, CT scan - c hest: Minimally displaced right 7th, 8th, 9th, 12th rib. Multiple chronic wedge compression fracture deformities. Small right pleural effusion, inconsistent with blood products and thought to be chronic, CT scan - abdomen/pelvis:No acute pathology. Patient admitted for multiple rib fractures scalp and facial abrasions and pleural effusion secondary to ground level fall. Patient History Medical History (Updated 12/16/20 @ 06:34 by FEMI Lagunas) Contusion of rib on left side Contusion of right hand Essential hypertension GERD (gastroesophageal reflux disease) History of anal cancer History of squamous cell carcinoma Surgical History (Updated 12/16/20 @ 06:34 by FEMI Lagunas) History of cataract surgery History of colostomy History of knee surgery History of left hip replacement Family & Social History Family History (Updated 12/16/20 @ 06:35 by FEMI Lagunas) Mother Diabetes mellitus Father No problems noted. Brother Heart disease Tobacco & Substance use: Patient lives at [facility], is a were x2 years Smoking Status smoked for 30 years and quit 25 years ago Drink Thad Ruiz daily for approximately 30 years quit 25 years ago Denies any recreational drug use Meds Home Medications and Allergies Home Medications Medication Instructions Recorded Confirmed Type aspirin 81 mg tablet,delayed 81 mg PO DAILY 10/10/19 12/16/20 History release losartan 25 mg tablet 25 mg PO DAILY 10/10/19 12/16/20 History naproxen 375 mg tablet 375 mg PO BID PRN 10/10/19 12/16/20 History pantoprazole 40 mg tablet,delayed 40 mg PO DAILY 10/10/19 12/16/20 History release sertraline 50 mg tablet 50 mg PO DAILY 10/10/19 12/16/20 History Allergies Allergy/AdvReac Type Severity Reaction Status Date / Time No Known Drug Allergies Allergy Unverified 10/10/19 08:34 Review of Systems Review of Systems ROS: Yes All systems reviewed with the patient and are negative except as otherwise documented Musculoskeletal Musculoskeletal: Reports myalgias, Reports arthralgias and Reports limited range of motion Exam Vital Signs (past 8 hours): - 12/15/20 23:32 12/16/20 01:00 Temperature 97.4 F L Pulse Rate 71 69 Respiratory Rate 22 18 Blood Pressure 134/74 128/64 Pulse Oximetry 99 94 Oxygen Delivery Method Room Air Narrative Exam Narrative: General: Patient is a well-developed, well-nourished delightful male, in no distress at this time. HEENT: Normocephalic, abrasion noted to right forehead and exterior of right Nare, extraocular muscles intact, oral pharynx is clear and mucous membranes are moist. Neck is supple and symmetric, trachea is midline, no adenopathy, no thyroid enlargement, nontender, no masses palpated. Negative for JVD Chest: Normal AP diameter and contour without kyphoscoliosis, no nasal flaring, retractions, or tachypneic labored, noted deformity to right lateral chest wall, did not observe any redness inflammation or bruising patient tender to the touch, lung sounds clear. Lungs: Auscultation of all lung jimenez are clear without adventitious sounds, wheezes, rhonchi, or rales. Cardio: S1 & S2 with regular rate and rhythm without murmur, rubs, or gallops, no carotid bruit, no cardiac pulsations present. Abdomen: Soft nontender, negative for organomegaly, or masses. Bowel sounds are present in all 2 right quadrants without guarding or rebound, no CVA tenderness. Colostomy bag on left no bowel sounds. Musculoskeletal: Muscle strength and tone are equal within normal limits, no deformity, crepitus, effusions, cyanosis, clubbing or edema present. Full range of motion intact radial and pedal pulses are normal. Skin: Warm dry and intact without rashes, ulcerations or petechiae. Patient has a colostomy bag left abdomen in place without any erythema inflammation or irritation Neuro: Alert and orientated x3, strength is +5/5 in all extremities, sensation to touch intact, no gross deficits noted of cranial nerves. Psych: Patient has a well-kept appearance, appropriate affect, mental status attitude thought context and judgment are appropriate for age. Objective Labs Result Diagrams: 12/16/20 00:05 12/16/20 00:05 Labs: Laboratory Results - last 24 hr 12/16/20 12/16/20 12/16/20 00:05 00:05 00:05 WBC 10.8 RBC 4.68 Hgb 13.4 L Hct 40.7 L MCV 87.2 MCH 28.6 MCHC 32.8 RDW 13.9 Plt Count 161 Neut % (Auto) 78.9 H Lymph % (Auto) 13.0 L [place] % (Auto) 6.8 Eos % (Auto) 0.8 L Baso % (Auto) 0.5 Neut # (Auto) 8500 H Lymph # (Auto) 1400 [place] # (Auto) 700 Eos # (Auto) 100 Baso # (Auto) 100 PT 11.8 INR 1.0 APTT 27 Sodium 137 Potassium 4.3 Chloride 105 Carbon Dioxide 24 BUN 23 H Creatinine 1.12 Estimated GFR > 60.0 BUN/Creatinine Ratio 20.5 Glucose 115 H Calcium 9.4 Magnesium Total Bilirubin 0.6 AST 30 ALT 16 Alkaline Phosphatase 55 Total Protein 6.7 Albumin 3.6 Globulin 3.1 Albumin/Globulin Ratio 1.2 Lipase 54 SARS-CoV-2 (PCR) Blood Type Antibody Screen 12/16/20 12/16/20 12/16/20 00:05 00:05 00:50 WBC RBC Hgb Hct MCV MCH MCHC RDW Plt Count Neut % (Auto) Lymph % (Auto) [place] % (Auto) Eos % (Auto) Baso % (Auto) Neut # (Auto) Lymph # (Auto) [place] # (Auto) Eos # (Auto) Baso # (Auto) PT INR APTT Sodium Potassium Chloride Carbon Dioxide BUN Creatinine Estimated GFR BUN/Creatinine Ratio Glucose Calcium Magnesium 1.8 Total Bilirubin AST ALT Alkaline Phosphatase Total Protein Albumin Globulin Albumin/Globulin Ratio Lipase SARS-CoV-2 (PCR) Negative Blood Type A Positive Antibody Screen Negative Assessment & Plan Assessment & Plan narrative: This patient requires acute care inpatient h ospital management for Multiple rib fractures and scalp and facial abrasion secondary to ground level fall with subsequent pleural effusion. The patient is at much higher risk for medical and surgical complications to do is history of left hip replacement, knee replacement and hypertension. These factors increase the difficulty and complexity of medical and surgical interventions and increases the chances of poor outcomes such as morbidity and mortality. 1. Multiple rib fractures and scalp and facial abrasion secondary to ground level fall with subsequent pleural effusion, acute, present on admission -ortho was consulted in ER vitals upon admit temp 97.4?, BP 120/64, HR 69, RR 18, O2 saturation 94% on room air. Patient's labs HGB 13.4, HCT 40.7, BUN 23, glucose 115, patient was typed and cross and has A positive blood. CT scan - head:No acute intracranial findings, CT - cervical spine: No bony abnormality, CT scan - chest: Minimally displaced right 7th, 8th, 9th, 12th rib. Multiple chronic wedge compression fracture deformities. Small right pleural effusion, inconsistent with blood products and thought to be chronic, CT scan - abdomen/pelvis:No acute pathology. -patient to be monitored on tele medicine, vital signs q.4 hours, intake and output monitored Q shift, weight measure daily, diet:Heart Healthy -IV fluid LR 60cc/hour -manage patient's pain hydration and comfort -labs ordered: CBC, CMP, Mag, PT -wells score -0, GCS-15 -consults for physical therapy, occupational therapy need to be ordered after ortho eval. -prevention vaccine: Recommend seasonal flu, shingles, pneumonia, COVID-19 when available 2. Essential hypertension, chronic, not present on admission -continue patient's home medication losartan 3. GERD, chronic not present on admission, control unknown -continue patients home pantoprazole 4. Depression, chronic, not present on admission -patient denies signs or symptoms of depression, denies suicidal ideation -continue patient's home sertraline Code status:DNR Surrogate/plan of care: Daughter Cyn Perez COVID PCR:Negative VTE prophylaxis: Lovenox 40 mg and SCDs Scores GCS [place] coma scale eye opening: Spontaneous [place] coma scale verbal response: Orientated [place] coma scale motor response: Obey commands [place] coma scale total score: 15 Wells' Criteria for PE Clinical signs and symptoms of DVT: No PE is #1 Dx or equally likely: No Heart rate > 100: No Immobilization at least 3 days or surg in previous 4 weeks: No History of PE or DVT: No Hemoptysis: No Malignancy w/Treatment within 6 months or palliative: No Wells' PE Score total: 0
[2020-12-16 03:07] VITALS: BMI 27.8
[2020-12-16 03:14] VITALS: BP 154/72; PULSE 64; RESP 18; TEMP 36.2; O2SAT 94
[2020-12-16] MEDS: HYDROCODONE/ACET 5/325 TABLET 2 TAB PO ×2 (03:33→11:08)
[2020-12-16] MEDS: LACTATED RINGERS 1,000 ML 60 ML IV (03:35)
[2020-12-16 04:00] VITALS: BP 140/95; PULSE 61; RESP 22; O2SAT 93
[2020-12-16 05:16] LABS: Add Manual Diff / Slide Review NO; Basophils Absolute Auto 0 /uL (0-100); Basophils Percent Auto 0.4 % (0-2); Eosinophils Absolute Auto 100 /uL (0-450); Eosinophils Percent Auto 0.7 % (2-4); Hematocrit 38.5 % (41-53); Hemoglobin 12.5 g/dL (13.5-17.5); Lymphocytes Absolute Auto 1500 /uL (1100-4500); Lymphocytes Percent Auto 17.8 % (25-40); Mean Corpuscular HGB Conc 32.5 % (30-36); Mean Corpuscular Hemoglobin 28.6 PG (26-34); Mean Corpuscular Volume 88.1 fL (80-100); Monocytes Absolute Auto 700 /uL (0-900); Monocytes Percent Auto 8.1 % (3-14); Neutrophils Absolute Auto 6000 /uL (1500-7000); Platelet Count 135 X10^3/uL (150-400); Red Blood Cell Count 4.37 X10^6/uL (4.5-5.9); Red Cell Distribution Width 14.1 % (11.6-14.8); White Blood Cell Count 8.2 X10^3/uL (4.5-11.0)
[2020-12-16 05:26] LABS: Alanine Aminotransferase 16 IU/L (<50); Albumin 3.3 g/dL (3.5-5.0); Albumin Globulin Ratio 1.2 (1.0-2.8); Alkaline Phosphatase 43 U/L (38-126); Aspartate Aminotransferase 26 IU/L (17-59); BUN Creatinine Ratio 21.4 (6-22); Bilirubin Total 0.7 mg/dL (0.2-1.3); Blood Urea Nitrogen 22 mg/dL (9-20); Calcium 9.4 mg/dL (8.4-10.2); Carbon Dioxide 28 mmol/L (22-32); Chloride 103 mmol/L (98-107); Estimated Glomerular Filt Rate > 60.0 mL/min (>60); Globulin 2.8 g/dL (1.7-4.1); Glucose 117 mg/dL (80-110); HEMOLYSIS < 15 (0-50); Potassium 4.1 mmol/L (3.4-5.1); Sodium 136 mmol/L (137-145); Total Protein 6.1 g/dL (6.3-8.2)
--- NOTE | 2020-12-16 05:59 | DI.RAD.S_ITS ---
PROCEDURE: XR CHEST 1V INDICATIONS: s/p fall, right rib fractures TECHNIQUE: One view of the chest was acquired. COMPARISON: [facility], CT, CT CHEST ABD PEL W CON, 12/15/2020, 23:43. [facility], CR, CHEST 2VW, 08/06/2014, 15:56. FINDINGS: Surgical changes and devices: None. Lungs and pleura: Lungs are clear. 1 centimeter nodule noted in the right lung apex. No pleural effusions or pneumothorax. Mediastinum: Mediastinal contours appear normal. Heart is enlarged. Bones and chest wall: Mildly displaced right-sided rib fractures No suspicious bony lesions. Overlying soft tissues appear unremarkable. IMPRESSION: 1. Right-sided rib fractures. 2. No pneumothorax. 3. 1.0 centimeter right upper lobe nodule. Recommend follow-up CT scan in 3 months. Fleischner Society criteria for SOLID lung nodule followup. Nodule size (mm)Low-risk patientHigh-risk patient<6 (single or multiple)No routine followup.Optional CT at 12 months. 6-8 (single or multiple)CT at 6-12 months, then optional CT at 18-24 mo.CT at 6-12 months, then CT at 18-24 months. >8 (single)CT at 3 months, PET-CT, or biopsy. Same as for low-risk pts. >8 (multiple)CT at 3-6 months, then optional CT at 18-24 mo.CT at 3-6 months, then CT at 18-24 months. Recommendations do not apply to lung cancer screening, patients with immunosuppression, or patients with known primary cancer. Dictated by: Karen Hooper MD, PhD on 12/16/2020 at 6:46 Approved by: Karen Hooper MD, PhD on 12/16/2020 at 6:49
--- NOTE | 2020-12-16 06:09 | P.CONS_ITS ---
History of Present Illness Consult details Date Patient Seen: 12/16/20 Time Patient Seen: 06:09 Chief complaint: GLF Reason for consult: ground level fall Requesting provider: Harjit Linares Narrative: 85 yo male tripped and fell onto his right side yesterday striking his head. no LOC. Complains of right sided chest pain. No dizziness, no nausea. No SOB. No cough Meds Home Medications and Allergies Home Medications Medication Instructions Recorded Confirmed Type aspirin 81 mg tablet,delayed 81 mg PO DAILY 10/10/19 12/16/20 History release losartan 25 mg tablet 25 mg PO DAILY 10/10/19 12/16/20 History naproxen 375 mg tablet 375 mg PO BID PRN 10/10/19 12/16/20 History pantoprazole 40 mg tablet,delayed 40 mg PO DAILY 10/10/19 12/16/20 History release sertraline 50 mg tablet 50 mg PO DAILY 10/10/19 12/16/20 History Allergies Allergy/AdvReac Type Severity Reaction Status Date / Time No Known Drug Allergies Allergy Unverified 10/10/19 08:34 Review of Systems Review of Systems Narrative: No dizziness. No SOB ROS: Yes All systems reviewed with the patient and are negative except as otherwise documented Exam Vital Signs (past 8 hours): - 12/15/20 23:32 12/16/20 01:00 12/16/20 02:00 Temperature 97.4 F L Pulse Rate 71 69 Respiratory Rate 22 18 Blood Pressure 134/74 128/64 Pulse Oximetry 99 94 93 12/16/20 03:14 12/16/20 04:00 Temperature 97.1 F L Pulse Rate 64 61 Respiratory Rate 18 22 Blood Pressure 154/72 H 140/95 H Pulse Oximetry 94 93 Oxygen Delivery Method Room Air Oxygen Flow Rate 0 Const General: cooperative and healthy appearing [facility] Head: abrasion (on forehead, small and superficial) Ears: external ears normal and hearing grossly impaired Nose: external nose normal Eyes Conjunctivae: conjunctivae normal Sclera: sclerae normal Neck Neck: trachea midline and supple Chest Chest: normal inspection of the chest and localized rib tenderness with anteroposterior compression (right side) Resp Effort & Inspection: normal respiratory effort and able to speak in complete sentences Cardio Rate: regular rate Rhythm: regular rhythm GI Inspection: normal to inspection Palpation: soft Back/Spine/Pelvis Back: normal to inspection Neuro General: patient alert, patient awake and patient oriented x3 Cognition: normal cognition Extrem General: normal to inspection and full ROM Psych Appearance: grossly normal Judgment: judgment good Objective Labs Result Diagrams: 12/16/20 04:49 12/16/20 04:49 Labs: Laboratory Results - last 24 hr 12/16/20 12/16/20 12/16/20 00:05 00:05 00:05 WBC 10.8 RBC 4.68 Hgb 13.4 L Hct 40.7 L MCV 87.2 MCH 28.6 MCHC 32.8 RDW 13.9 Plt Count 161 Neut % (Auto) 78.9 H Lymph % (Auto) 13.0 L [place] % (Auto) 6.8 Eos % (Auto) 0.8 L Baso % (Auto) 0.5 Neut # (Auto) 8500 H Lymph # (Auto) 1400 [place] # (Auto) 700 Eos # (Auto) 100 Baso # (Auto) 100 PT 11.8 INR 1.0 APTT 27 Sodium 137 Potassium 4.3 Chloride 105 Carbon Dioxide 24 BUN 23 H Creatinine 1.12 Estimated GFR > 60.0 BUN/Creatinine Ratio 20.5 Glucose 115 H Calcium 9.4 Magnesium Total Bilirubin 0.6 AST 30 ALT 16 Alkaline Phosphatase 55 Total Protein 6.7 Albumin 3.6 Globulin 3.1 Albumin/Globulin Ratio 1.2 Lipase 54 Nasal Screen MRSA (PCR) SARS-CoV-2 (PCR) Blood Type Antibody Screen 12/16/20 12/16/20 12/16/20 00:05 00:05 00:50 WBC RBC Hgb Hct MCV MCH MCHC RDW Plt Count Neut % (Auto) Lymph % (Auto) [place] % (Auto) Eos % (Auto) Baso % (Auto) Neut # (Auto) Lymph # (Auto) [place] # (Auto) Eos # (Auto) Baso # (Auto) PT INR APTT Sodium Potassium Chloride Carbon Dioxide BUN Creatinine Estimated GFR BUN/Creatinine Ratio Glucose Calcium Magnesium 1.8 Total Bilirubin AST ALT Alkaline Phosphatase Total Protein Albumin Globulin Albumin/Globulin Ratio Lipase Nasal Screen MRSA (PCR) SARS-CoV-2 (PCR) Negative Blood Type A Positive Antibody Screen Negative 12/16/20 12/16/20 12/16/20 04:15 04:49 04:49 WBC 8.2 RBC 4.37 L Hgb 12.5 L Hct 38.5 L MCV 88.1 MCH 28.6 MCHC 32.5 RDW 14.1 Plt Count 135 L Neut % (Auto) 73.0 Lymph % (Auto) 17.8 L [place] % (Auto) 8.1 Eos % (Auto) 0.7 L Baso % (Auto) 0.4 Neut # (Auto) 6000 Lymph # (Auto) 1500 [place] # (Auto) 700 Eos # (Auto) 100 Baso # (Auto) 0 PT INR APTT Sodium 136 L Potassium 4.1 Chloride 103 Carbon Dioxide 28 BUN 22 H Creatinine 1.03 Estimated GFR > 60.0 BUN/Creatinine Ratio 21.4 Glucose 117 H Calcium 9.4 Magnesium Total Bilirubin 0.7 AST 26 ALT 16 Alkaline Phosphatase 43 Total Protein 6.1 L Albumin 3.3 L Globulin 2.8 Albumin/Globulin Ratio 1.2 Lipase Nasal Screen MRSA (PCR) Negative for mrsa SARS-CoV-2 (PCR) Blood Type Antibody Screen Assessment & Plan Assessment & Plan narrative: Ground level fall with rib fractures 7,8,9, 12 on the right (minimally displaced) no PTX on CT. Observation overnight, he has good pain control no SOB or hypoxia. Initial reading on CXR is no PTX on the right. If radiology reading agrees, general surgery will sign off. Plan: PT and OT consult, ICS q 2 hours will awake. Pain control. No heavy lifting (greater than 15 lbs for 2 weeks), no surgery follow up needed. COVID-19 COVID-19 status: Negative Time Spent With Patient Time with patient: 15-24 minutes
[2020-12-16 07:20] VITALS: BP 132/69; PULSE 65; RESP 16; TEMP 36.3; O2SAT 96
--- NOTE | 2020-12-16 09:13 | CM.DANOTE ---
Addendum entered by Cherise Vicente R.N. 12/16/20 11:48: Spoke to Fernanda at [facility], and confirmed that patient is independent with no services. Patient is deemed ready for discharge today, and according to P.T, no home health is needed if patient can continue to use the services at [facility]. Called [facility] main desk, and they gave the number for transportation when patient is ready to be picked up. Gave number to patient. Original Note: DCP: Case received, EMR reviewed and met with patient. Introduced self and role. Was able to obtain information from patient regarding his baseline activity status prior to hospitalization, as well as current services received at [facility]. DCP assessment completed with information currently available. Patient is an 85 year old male who admitted early this morning to the care of the hospitalist team. PCP: Dr. Morin. Payer: confirmed: Medicare/[employer]. Patient came to the hospital via ambulance secondary to a ground level fall that occurred at his assisted living facility. Patient resides here in [place] at [facility]. patient had tripped, landed on his right side. He ended up with rib contusion/fractures. Met with patient in his room. He was awake, laying in bed, alert and oriented, pleasant. Patient is independent at [facility], he indicated that he still drives, uses a FWW. He indicated, if he needs anything, he can call for help as needed. He has a daughter that lives in [place], [facility]. Patient indicated, if he is going to leave today, he needs to let [facility] know so they can pick him up. He has not yet worked with the therapy team. Called [facility], left a message with Fernanda, director, but was able to speak to caregiver, Sherry. Stated and confirmed that he is independent with no services, but has a pendant if he needs any assist. He does his own medications and his own showers. Stated, he had come by the caregiving office and stated that he had a fall and possibly broke his ribs. P: DCP to continue to follow. Will see how he does with P.T. Patient should be able to go back to [facility] if he is cleared by P.T, but may benefit with home health. Cherise Vicente RN/Director Of Casework Services
--- NOTE | 2020-12-16 09:49 | OT.IP.EVAL ---
Past Medical History (Last Updated 12/16/20 @ 06:34 [facility] Contusion of rib on left side Contusion of right hand Essential hypertension GERD (gastroesophageal reflux disease) History of anal cancer History of squamous cell carcinoma Surgical History (Last Updated 12/16/20 @ 06:34 [facility] History of cataract surgery History of colostomy History of knee surgery History of left hip replacement Occupational Therapy Inpatient Evaluation/Re-Eval M1 PT/OT-IP Prior Functional Status Start: 12/16/20 08:56 Freq: NEEDED Status: Active Protocol: Document 12/16/20 10:55 CGR (Rec: 12/16/20 11:06 CGR [id number]) Medical Review Prior Functional Status Medical History Reviewed Yes Communication Pt is an effective verbal communicator Mobility and Gait Pt was MOD I using a 4WW. Activities of Daily Living and IADL's Pt was IND to MOD I for all ADLs. Pt does not recieve any help at this time from caretakers. Social History Household Members other Living Arrangements Assisted Living Number of Floors (Floors) One Floor Number of Stairs To Enter/Railing? PT has an elevator or ramps for all entry. Home Environment High Toilet,Walk in Shower Home Equipment Four Wheel Walker,Shower Seat without Backrest,Hand Held Shower,Pharmacy Ancillary,Sock Aid,Grab Bars Near Toilet,Grab Bars In Shower Employment Status Retired Additional Social History Comment Pt has an adjustable bed. M1 PT/OT-IP Prior Functional Status Start: 12/16/20 10:55 Freq: NEEDED Status: Active Protocol: Document 12/16/20 10:55 CGR (Rec: 12/16/20 11:06 CGR [id number]) Medical Review Prior Functional Status Medical History Reviewed Yes Communication Pt is an effective verbal communicator Mobility and Gait Pt was MOD I using a 4WW. Activities of Daily Living and IADL's Pt was IND to MOD I for all ADLs. Pt does not recieve any help at this time from caretakers. Social History Household Members other Living Arrangements Assisted Living Number of Floors (Floors) One Floor Number of Stairs To Enter/Railing? PT has an elevator or ramps for all entry. Home Environment High Toilet,Walk in Shower Home Equipment Four Wheel Walker,Shower Seat without Backrest,Hand Held Shower,Pharmacy Ancillary,Sock Aid,Grab Bars Near Toilet,Grab Bars In Shower Employment Status Retired Additional Social History Comment Pt has an adjustable bed. M2 OT-IP Current Condition Start: 12/16/20 10:55 Freq: Status: Active Protocol: Document 12/16/20 10:55 CGR (Rec: 12/16/20 11:06 CGR [id number]) Occupational Therapy Current Condition Current Condition Evaluation Date 12/16/20 Treatment Diagnosis GLF with multiple rib fx, scalp and facial abrasions. Diagnosis Onset Date 12/16/20 M3 OT- IP Subjective and Pain Start: 12/16/20 10:55 Freq: Status: Active Protocol: Document 12/16/20 10:55 CGR (Rec: 12/16/20 11:06 CGR [id number]) OT- Subjective Occupational Therapy Visit Type Type Initial Evaluation Visit Start Time 09:30 Visit Stop Time 09:49 Total Visit Minutes 19 OT Pain Assessment Pain When Pain Assessed During Mobility Pain Present Pain Present Pain Reported Location Right Ribs Intensity 5 Scale Used Numeric (0 - 10) Management Techniques Distraction,Modification of Treatment,Re-positioning M4 OT- IP ADL's Start: 12/16/20 10:55 Freq: Status: Active Protocol: Document 12/16/20 10:55 CGR (Rec: 12/16/20 11:06 CGR [id number]) OT [id number] Comments OT Self-Feeding Comments Not meal time OT ADL-Grooming General Evaluation Grooming Ability Standby Assistance Areas Needing Assistance Combing/Brushing Hair,Face Washing Comments OT Grooming Comments standing at sink OT ADL-Oral Care General Eval Oral Care Ability Standby Assistance Areas of Assistance Brushing Teeth Comments Oral Care Comments standing at sink OT ADL-Dressing General Eval Lower Body Dressing Ability Total Assistance Comments OT Dressing Comments Pt needed assist donning socks as he typically uses a sock aid and mill tender for LB dressing d/t hx of L hip replacement. OT ADL-Toileting Comments OT Toileting Comments Not performed, pt states he rarely uses his toilet d/t colostomy and urinal. OT ADL-Bathing Comments OT Bathing Comments not performed M5 OT- IP IADL's Start: 12/16/20 10:55 Freq: Status: Active Protocol: Document 12/16/20 10:55 CGR (Rec: 12/16/20 11:06 CGR [id number]) OT-Instrumental Activities of Daily Living Deficits IADL Deficits Identified No Deficits Home Safety Awareness Awareness of Need for Assistance at Home Good Awareness Ability to Problem Solve Emergency Able to Problem Solve Situations Medication Management Medication Management No Deficits Identified Money Management Money Management No Deficits Identified Meal Preparation Meal Preparation No Deficits Identified Patient Financial Services Specialist Patient Financial Services Specialist No Deficits Identified Driving Driving Comments Concern for pt's ability to drive safely at this time. M6 OT- IP Functional Cognition Start: 12/16/20 10:55 Freq: Status: Active Protocol: Document 12/16/20 10:55 CGR (Rec: 12/16/20 11:06 CGR [id number]) Cognitive Factors Limiting Selfcare Function Cognitive Ability Level of Alertness Alert Patient Orientation Name,Age,Birthday,Month,Date, Year,Day of Week,Place, Situation Attention Span Ability Capable of Focused Attention, Capable of Sustained Attention Ability to Follow Commands Able to Follow One Step Commands with Increased Time, Able to Follow One Step Commands with Repetition OT- Vision and Hearing OT- Hearing Assessment OT- Hearing Assessment Hearing Impaired,Use of Hearing Aids OT- Vision Assessment Visual Acuity Glasses All The Time Visual Attentiveness WFL Occular Pursuits WFL Visual Convergence WFL Vision Assessment Comments Pt wearing trifocals. M7 OT- IP Mobility and Balance Start: 12/16/20 10:55 Freq: Status: Active Protocol: Document 12/16/20 10:55 CGR (Rec: 12/16/20 11:06 CGR [id number]) OT- Bed Mobility Assessment Rolling Type of Rolling Roll to Left Level of Assistance Standby Assistance Supine to Sit Supine to Sit Assist Standby Assistance Scooting Scooting to Edge of Bed Standby Assistance OT-Transfer Assessment Sit to and From Stand Sit to and from Stand Standby Assistance Transfers Transfer Ability Standby Assistance Technique Transfer Destination Bed,Chair Transfer Technique Stand Step Pivot Devices Transfer Assistive Devices Gait Belt,Front Wheeled Walker Comments Mobility Comments Pt is able to mobilize around the room with SBA using the 2ww. Pt states he feels more comfortable with a 4WW. OT- Balance Assessment Sitting Balance and Reactions Static Sitting Balance Ability Good Dynamic Sitting Balance Ability Fair M8 OT- IP Objective Assessments Start: 12/16/20 10:55 Freq: Status: Active Protocol: Document 12/16/20 10:55 CGR (Rec: 12/16/20 11:06 CGR [id number]) OT Gross Range of Motion Upper Extremity Range of Motion Assessment Within Functional Limits OT Strength Comments Strength Comments strength not tested d/t pain in the ribs. OT- Coordination Assessment Upper Extremity Finger to Nose Test Within Functional Limits Finger Tapping Test Within Functional Limits OT-Muscle Tone Assessment Muscle Tone WNL Yes OT Sensation Assessment Edema Edema Absent M9 OT- IP Assessment and Plan Start: 12/16/20 10:55 Freq: Status: Active Protocol: Document 12/16/20 10:55 CGR (Rec: 12/16/20 11:06 CGR [id number]) OT Summary Assessment and Plan Potential Rehabilitation Potential Good Analytic Complexity at Evaluation Low Summary OT Impairments Pain Progress Towards Goals Slow Progress due to Pain Assessment Summary Pt presents as a low complexity evaluation s/p admit for fall at home. Pt is performing ADLs at his baseline. Will defer functional mobility to P.T. at this time. No further OT needs. Frequency of Treatment Frequency Of Treatment Discharge Discharge Recommendations OT Discharge Recommendations Home Transportation Needs at Discharge Private Vehicle
[2020-12-16 11:00] VITALS: BP 158/69; PULSE 54; RESP 18; TEMP 36.5; O2SAT 95
--- NOTE | 2020-12-16 11:39 | PT.IIE ---
Surgical History (Last Updated 12/16/20 @ 06:34 by Sari Muñoz [facility]) History of cataract surgery History of colostomy History of knee surgery History of left hip replacement Medical History (Last Updated 12/16/20 @ 06:34 by Sari Muñoz [facility]) Contusion of rib on left side Contusion of right hand Essential hypertension GERD (gastroesophageal reflux disease) History of anal cancer History of squamous cell carcinoma Physical Therapy Inpatient Evaluation/Re-Eval M1 PT/OT-IP Prior Functional Status Start: 12/16/20 08:56 Freq: NEEDED Status: Active Protocol: Document 12/16/20 10:55 CGR (Rec: 12/16/20 11:06 CGR [id number]) Medical Review Prior Functional Status Medical History Reviewed Yes Communication Pt is an effective verbal communicator Mobility and Gait Pt was MOD I using a 4WW. Activities of Daily Living and IADL's Pt was IND to MOD I for all ADLs. Pt does not recieve any help at this time from caretakers. Social History Household Members other Living Arrangements Assisted Living Number of Floors (Floors) One Floor Number of Stairs To Enter/Railing? PT has an elevator or ramps for all entry. Home Environment High Toilet,Walk in Shower Home Equipment Four Wheel Walker,Shower Seat without Backrest,Hand Held Shower,Sling Operator,Sock Aid,Grab Bars Near Toilet,Grab Bars In Shower Employment Status Retired Additional Social History Comment Pt has an adjustable bed. M1 PT/OT-IP Prior Functional Status Start: 12/16/20 10:55 Freq: NEEDED Status: Active Protocol: Document 12/16/20 11:39 AW (Rec: 12/16/20 12:24 AW [id number]) Medical Review Prior Functional Status Medical History Reviewed Yes Communication Pt is an effective verbal communicator Mobility and Gait Pt was MOD I using a 4WW 100% of the time. He has history of L MISSY with multiple revisions and dislocations. He is attending PT in-house at [facility] and reports he is working on ambulating with a SPC but only in therapy . Activities of Daily Living and IADL's Pt was IND to MOD I for all ADLs. Pt does not recieve any help at this time from caretakers. Prior Functional Level (Other details) Pt reports at least three falls but not all within the past year. Social History Household Members other Living Arrangements Assisted Living Number of Floors (Floors) One Floor Number of Stairs To Enter/Railing? PT has an elevator or ramps for all entry. Home Environment High Toilet,Walk in Shower Home Equipment Four Wheel Walker,Shower Seat without Backrest,Hand Held Shower,Sling Operator,Sock Aid,Grab Bars Near Toilet,Grab Bars In Shower Employment Status Retired Additional Social History Comment Pt has an adjustable bed. M2 PT-IP Current Condition Start: 12/16/20 08:56 Freq: NEEDED Status: Active Protocol: Document 12/16/20 11:39 AW (Rec: 12/16/20 12:24 AW [id number]) Physical Therapy Current Condition Current Condition Evaluation Date 12/16/20 Treatment Diagnosis R rib fractures, GLF, difficulty in walking Onset Date 12/15/20 Precautions Other Precautions falls, ostomy (keep gait belt above) M3 PT-IP Subjective Start: 12/16/20 08:56 Freq: NEEDED Status: Active Protocol: Document 12/16/20 11:39 AW (Rec: 12/16/20 12:24 AW [id number]) Subjective Physical Therapy Visit Type Type Initial Evaluation Visit Start Time 11:15 Visit Stop Time 11:39 Total Visit Minutes 24 Physical Therapy Visit Comments Patient Comments Pt is willing to participate with PT Patient Goals Return to [facility] Pain Assessment Pain When Pain Assessed During Mobility Pain Present Pain Present Pain Reported Location Right Ribs Intensity 5 Scale Used 4/10 at rest Pain Management Techniques Modification of Treatment, Timing of Activity with Medications M4 PT-IP Mobility and Gait Start: 12/16/20 08:56 Freq: NEEDED Status: Active Protocol: Document 12/16/20 11:39 AW (Rec: 12/16/20 12:24 AW [id number]) PT-Bed Mobility Assessment Supine to Sit Supine to Sit Standby Assistance,Head of Bed Elevated Scooting Scooting to Edge of Bed Standby Assistance PT-Transfer Assessment Sit to and From Stand Sit to and from Stand Standby Assistance,Use of Upper Extremities Equipment Transfer Assistive Device Gait Belt,4 Wheeled Walker Orthotic/Prosthetic Devices or Brace: No Transfers Transfer Destination Chair Transfer Technique Stand Step Pivot Transfer Ability Level of Assist Standby Assistance Comments Mobility Comments Pt was sitting up in bed as PT arrived. BP 134/68. He stated he has an adjustable bed at home. With HOB raised, pt completed all bed mobility SBA and stood from EOB SBA. He used the 4WW to ambulate in the halls 120 feet with no LOB . Gait was notable for decreased LLE stance time which pt states is consistent with his baseline. On return to the room, pt transferred to the chair and completed another sit <> stand SBA. He did need reminder to set the brakes on 4WW before transitioning and he admits he does sometimes forget that. Pt was left in the chair with call light and all needs in reach. Gait Assessment Gait Gait Assistance Required: Standby Assistance Distance (Feet) 120 Able to Maintain Weight Bearing Status Yes During Gait Assistive Devices Assistive Device Gait Belt,4 Wheeled Walker Orthotic/Prosthetic Devices or Brace: No Gait Deviations General Gait Pattern Antalgic,Decreased Feet Clearance,Step-to Gait Factors Limiting Gait Function Factors Limiting Gait Function Pain,Poor Balance,Poor Safety Awareness Comments Gait Comments See mobility comments for details. Stair Climbing Assessment Comments Stair Climbing Comments Not assessed. Pt uses elevator and ramps at [facility]. PT-Balance Assessment Sitting Balance and Reactions Static Sitting Balance Ability Good Dynamic Sitting Balance Ability Good Standing Balance and Reactions Static Standing Balance Ability Good Dynamic Standing Balance Ability Good Device Used 4WW M5 PT-IP Objective Assessments Start: 12/16/20 08:56 Freq: NEEDED Status: Active Protocol: Document 12/16/20 11:39 AW (Rec: 12/16/20 12:24 AW [id number]) Orientation Orientation/Cognition Level of Alertness Alert Orientation Name,Day of Week,Place, Situation Language Function Ability No Deficits Noted,Hard of Hearing Safety Awareness Decreased Safety Awareness Gross Range of Motion Lower Extremity ROM Assessment Within Functional Limits Strength Lower Extremity Strength Assessment Within Functional Limits Coordination Assessment Gross Coordination Gross Coordination WNL Sensation Assessment Sensation Gross Sensation WNL Muscle Tone Muscle Tone WNL Yes M6 PT-IP Treatment Start: 12/16/20 08:56 Freq: NEEDED Status: Active Protocol: Document 12/16/20 11:39 AW (Rec: 12/16/20 12:24 AW [id number]) Physical Therapy Treatment Education Education Provided Safety M7 PT-IP Assessment and Plan Start: 12/16/20 08:56 Freq: NEEDED Status: Active Protocol: Document 12/16/20 11:39 AW (Rec: 12/16/20 12:24 AW [id number]) PT Summary Assessment and Plan Potential Rehabilitation Potential Good Status of Condition at Evaluation Evolving Summary Impairments Pain,Strength,Balance,Gait, Activity Tolerance Assessment Summary Blake is an 85 yo man seen for PT evaluation with admitting diagnosis of right sided rib fractures following a GLF. Pt lives independently at [facility] and is modified independent with use of 4WW at baseline. On evaluation, pt required SBA for mobility with 4WW. He complained of increased right side pain with mobility but it did not affect his function. Pt will be safe for discharge back to [facility] once medically stable. Recommend continued in -house PT. Goals Bed Mobility Goal Independent Transfer Goal Independent,Four Wheeled Walker Gait Goal Independent,Four Wheel Walker Gait Distance 250 Frequency of Treatment Frequency Of Treatment Once a Day Treatment Plan Physical Therapy Treatment Plan Bed Mobility Training,Transfer Training,Gait Training, Therapeutic Exercise,Balance Retraining,Discharge Planning, Hot or Cold Pack Precautions Other Precautions falls Recommendations To Nursing Amount of Assist Needed Standby Assistance Discharge Recommendations PT Discharge Recommendations Home,Outpatient PT Transportation Needs at Discharge Private Vehicle,Wheelchair/ Cabulance
--- NOTE | 2020-12-16 13:11 | PM.DS.1 ---
History of Present Illness History of Present Illness Chief complaint: GLF Narrative: Per H and P from Sari Muñoz on 12/15: Patient is a 85-year-old male Blake Perez who presented to the ED via EMS with a chief complaint of a ground level fall and multiple injuries. He states that he was walking in his apartment at [facility] when his right foot got caught up and he tripped and fell onto his right side. He struck his head right-sided chest and abdomen. He has an abrasion on his forehead and right outer nare but did not lose consciousness and denies nausea, vomiting, neurologic symptoms, blurred vision, trouble with speech or extremity weakness. He takes no blood thinners. He denies any pain in his hips, knees, ankles, shoulders, elbows or wrist. Patient notes that his pain has improved with pain medication in the ED. he denies shortness of breath, chest pain, or pain with deep breathing at this time. Patient a history anal squamous cell carcinoma, skin cancer, bilateral cataract surgery, left hip reconstruction, knee surgery, colostomy placement in 2019, hypertension and GERD. Patient's pain is a currently 03/08. Patient's vitals upon admit temp 97.4?, BP 120/64, HR 69, RR 18, O2 saturation 94% on room air. Patient's labs HGB 13.4, HCT 40.7, BUN 23, glucose 115, patient was typed and cross and has A positive blood. CT scan - head:No acute intracranial findings, CT - cervical spine: No bony abnormality, CT scan - chest: Minimally displaced right 7th, 8th, 9th, 12th rib. Multiple chronic wedge compression fracture deformities. Small right pleural effusion, inconsistent with blood products and thought to be chronic, CT scan - abdomen/pelvis:No acute pathology. Patient admitted for multiple rib fractures scalp and facial abrasions and pleural effusion secondary to ground level fall. Discharge Providers Provider Date of admission: 12/16/20 02:00 Discharge Date: 12/16/20 Primary care physician: Aleksandr Morin MD Consults: 12/16/20 06:00 Consult to General Surgery Routine Comment: Consulting Provider: Darshana Kumari Reason for consultation: trauma Has provider been notified: Yes 12/16/20 08:00 Consult to Physical Therapy Evaluate & Treat Comment: Physician Instructions: Evaluate and Treat 12/16/20 08:01 Consult to Occupational Therapy Evaluate & Treat Comment: Physician Instructions: Evaluate and treat Discharge provider: Juan Whitehead MD Summary Hospital Course Discharge Diagnosis: 1. Multiple rib fractures on right (7th, 8th, 9th, 12th) 2. Hypertension 3. GERD 4. Depression 5. History of SCC anal cancer s/p colostomy 6. Questionable pulmonary scarring vs nodule in Right lung Hospital Course: Mr. Perez was admitted after a fall and found to have multiple rib fractures. He was seen by surgery as he was trauma who recommended monitor overnight, incentive spirometry and pain control. He worked with PT and did well on day of discharge. His pain was controlled with oral medications. He had no respiratory compromise. He had no evidence of hemothorax or pneumothorax. He was encouraged to control pain well, continue incentive spirometry in order to avoid splinting and reduce risk of developing a pneumonia. Of note he did have a questionable area in his right lung of scarring vs nodule. He is recommended to have a follow CT in 3 months to determine if this resolves and if he needs any further workup such as a PET scan. The rest of his medical issues in the hospital were well controlled. Code status:DNR Surrogate/plan of care: Daughter Cyn MAS PCR:Negatives Discharge Time: 35 minutes Status at Discharge Cognitive/behavioral status at discharge: oriented Functional status at discharge: independent ambulation Overall status at discharge: patient is back to baseline Time Spent with Patient Time spent: Less than 30 minutes Exam Vital Signs (past 8 hours): - 12/16/20 07:20 12/16/20 11:00 Temperature 97.3 F L 97.7 F Pulse Rate 65 54 L Respiratory Rate 16 18 Blood Pressure 132/69 158/69 H Pulse Oximetry 96 95 Oxygen Delivery Method Room Air Oxygen Flow Rate 0 Narrative Exam Narrative: General: no distress at this time. HEENT: Normocephalic, abrasion noted to right forehead and right nare, extraocular muscles intact, mucous membranes are moist. CHEST: right axillary rib tenderness Lungs: clear bilaterally no wheezes rhonchi or rales Cardio: regular rate and rhythm without murmur, rubs, or gallops, Abdomen: Soft nontender, negative for organomegaly, or masses. normal bowel sounds. Colostomy bag on left. Musculoskeletal: Muscle strength and tone are equal within normal limits Skin: Warm dry and intact without rashes, ulcerations or petechiae Neuro: Alert and orientated x3, strength is +5/5 in all extremities, sensation to touch intact Psych: pleasant mood Objective Labs Result Diagrams: 12/16/20 04:49 12/16/20 04:49 Labs: Laboratory Results - last 24 hr 12/16/20 12/16/20 12/16/20 00:05 00:05 00:05 WBC 10.8 RBC 4.68 Hgb 13.4 L Hct 40.7 L MCV 87.2 MCH 28.6 MCHC 32.8 RDW 13.9 Plt Count 161 Neut % (Auto) 78.9 H Lymph % (Auto) 13.0 L [place] % (Auto) 6.8 Eos % (Auto) 0.8 L Baso % (Auto) 0.5 Neut # (Auto) 8500 H Lymph # (Auto) 1400 [place] # (Auto) 700 Eos # (Auto) 100 Baso # (Auto) 100 PT 11.8 INR 1.0 APTT 27 Sodium 137 Potassium 4.3 Chloride 105 Carbon Dioxide 24 BUN 23 H Creatinine 1.12 Estimated GFR > 60.0 BUN/Creatinine Ratio 20.5 Glucose 115 H Calcium 9.4 Magnesium Total Bilirubin 0.6 AST 30 ALT 16 Alkaline Phosphatase 55 Total Protein 6.7 Albumin 3.6 Globulin 3.1 Albumin/Globulin Ratio 1.2 Lipase 54 Nasal Screen MRSA (PCR) SARS-CoV-2 (PCR) Blood Type Antibody Screen 12/16/20 12/16/20 12/16/20 00:05 00:05 00:50 WBC RBC Hgb Hct MCV MCH MCHC RDW Plt Count Neut % (Auto) Lymph % (Auto) [place] % (Auto) Eos % (Auto) Baso % (Auto) Neut # (Auto) Lymph # (Auto) [place] # (Auto) Eos # (Auto) Baso # (Auto) PT INR APTT Sodium Potassium Chloride Carbon Dioxide BUN Creatinine Estimated GFR BUN/Creatinine Ratio Glucose Calcium Magnesium 1.8 Total Bilirubin AST ALT Alkaline Phosphatase Total Protein Albumin Globulin Albumin/Globulin Ratio Lipase Nasal Screen MRSA (PCR) SARS-CoV-2 (PCR) Negative Blood Type A Positive Antibody Screen Negative 12/16/20 12/16/20 12/16/20 04:15 04:49 04:49 WBC 8.2 RBC 4.37 L Hgb 12.5 L Hct 38.5 L MCV 88.1 MCH 28.6 MCHC 32.5 RDW 14.1 Plt Count 135 L Neut % (Auto) 73.0 Lymph % (Auto) 17.8 L [place] % (Auto) 8.1 Eos % (Auto) 0.7 L Baso % (Auto) 0.4 Neut # (Auto) 6000 Lymph # (Auto) 1500 [place] # (Auto) 700 Eos # (Auto) 100 Baso # (Auto) 0 PT INR APTT Sodium 136 L Potassium 4.1 Chloride 103 Carbon Dioxide 28 BUN 22 H Creatinine 1.03 Estimated GFR > 60.0 BUN/Creatinine Ratio 21.4 Glucose 117 H Calcium 9.4 Magnesium Total Bilirubin 0.7 AST 26 ALT 16 Alkaline Phosphatase 43 Total Protein 6.1 L Albumin 3.3 L Globulin 2.8 Albumin/Globulin Ratio 1.2 Lipase Nasal Screen MRSA (PCR) Negative for mrsa SARS-CoV-2 (PCR) Blood Type Antibody Screen [facility] Medical History (Updated 12/16/20 @ 06:34 by PILLO Lagunas-JORGE LUIS) Contusion of rib on left side Contusion of right hand Essential hypertension GERD (gastroesophageal reflux disease) History of anal cancer History of squamous cell carcinoma Surgical History (Updated 12/16/20 @ 06:34 by PILLO Lagunas-JORGE LUIS) History of cataract surgery History of colostomy History of knee surgery History of left hip replacement Family History (Updated 12/16/20 @ 06:35 by PILLO Lagunas-JORGE LUIS) Mother Diabetes mellitus Father No problems noted. Brother Heart disease Social History household members: other Smoking Status: Never smoker alcohol intake: former Discharge Plan Discharge Plan Patient Disposition: Home Provider Discharge Comment: Mr. Perez was admitted with a fall and found to have multiple rib fractures on his right side. He was given pain medications for his pain control which helped with taking deeper breaths. He will be given pain medications to help control the pain. It is important to have the pain controlled well enough that deep normal breaths can be taken regularly. This will help prevent a pneumonia that can occur with too much shallow breathing. Discharge orders & Medications Prescriptions: New hydrocodone-acetaminophen 5-325 mg Tablet 1 tab PO Q4-6H PRN (Reason: pain) Qty: 20 RF: 0 docusate sodium 100 mg tablet 100 mg PO BID Qty: 30 RF: 0 senna 8.6 mg capsule 8.6 mg PO BEDTIME PRN (Reason: constipation) Qty: 30 RF: 0 Continued losartan 25 mg tablet 25 mg PO DAILY RF: 0 sertraline 50 mg tablet 50 mg PO DAILY RF: 0 naproxen 375 mg tablet 375 mg PO BID PRN (Reason: Pain (Scale Score 1-3)) RF: 0 pantoprazole 40 mg tablet,delayed release (DR/EC) 40 mg PO DAILY RF: 0 aspirin [Adult Low Dose Aspirin] 81 mg tablet,delayed release (DR/EC) 81 mg PO DAILY RF: 0 Follow up/Referrals: Aleksandr Morin MD [Primary Care Provider] - Visit Report/Discharge Packet Instructions: DI for Rib Fracture, How to Prevent Falls, DI for Prescription Opioid Use, Hydrocodone Discharge Data Primary Care Provider: Aleksandr Morin Attending Provider: Sari Muñoz VTE Deep Vein Thrombosis/Pulmonary Embolism Present on Admission: No MIPS - DC The patient has current or prior documentation of left ventricular ejection fraction (LVEF) less than 40%, or moderate or severely depressed left ventricular systolic function.: No
--- NOTE | 2020-12-16 13:59 | PC.NURSE ---
Went over dc instructions and medications. questions answered. Patient taken via wc to vehicle driven by friend, patient had all belongings.
== END 2020-12-16 13:30 | disposition home or self-care (01) ==
LOC: ED 12-16 02:20 → ICU 12-16 03:05
PROVIDERS: Admitting Provider Nurse Practitioner Family; Emergency Provider Emergency Medicine; PCP Internal Medicine; Visit Provider Nurse Practitioner Family
DX: S22.41XA Multiple fractures of ribs, right side, initial encounter for closed fracture (principal); S00.81XA Abrasion of other part of head, initial encounter; S60.221A Contusion of right hand, initial encounter; J90 Pleural effusion, not elsewhere classified; W01.198A Fall on same level from slipping, tripping and stumbling with subsequent striking against other object, initial encounter; Y92.039 Unspecified place in apartment as the place of occurrence of the external cause; I10 Essential (primary) hypertension; K21.9 Gastro-esophageal reflux disease without esophagitis; F32.9 Major depressive disorder, single episode, unspecified; Z20.822 Contact with and (suspected) exposure to COVID-19; Z79.82 Long term (current) use of aspirin
CPT/HCPCS: 36415; 36592; 70450; 71045; 71260; 72125; 74177; 80053; 83690; 83735; 85025; 85610; 85730; 86850; 86900; 86901; 87635; 87797; 93005; 93010; 96361; 96374; 97161; 97165; 99225; 99285; C9803; G0378; J3010; Q9967

== ENCOUNTER 2021-07-30 17:45 | Emergency (ER) | payer MEDICARE, OTHER, SELFPAY ==
[2021-07-30] VITALS (10 sets, daily range): BP systolic 137–169; BP diastolic 82–96; PULSE 100–104; RESP 16–39; TEMP 36.4; O2SAT 90–96; BMI 25.1
--- NOTE | 2021-07-30 17:46 | DI.CT.S_ITS ---
PROCEDURE: CT CERVICAL SPINE WO CON INDICATIONS: PAIN AFTER FALL TECHNIQUE: Noncontrast 3 mm thick sections acquired from the skull base to the T4 level. Sagittal and coronal reformats were then constructed. For radiation dose reduction, the following was used: automated exposure control, adjustment of mA and/or kV according to patient size. COMPARISON: [facility], CT, CT HEAD/BRAIN WO CON, 07/30/2021, 17:47. [facility], CT, CT CERVICAL SPINE WO CON, 12/15/2020, 23:43. FINDINGS: Image quality: Excellent. Bones: No fractures or dislocations. Visualized superior ribs are intact. Degenerative changes are seen throughout, with at least moderate disc space narrowing at C3-C4 and C5-C6. Mild retrolisthesis is seen at C3-C4. Focal degenerative change is seen involving the C1-C2 interface anteriorly. Milder degenerative changes are seen elsewhere. Age-appropriate osteopenia is seen. Soft tissues: Prevertebral soft tissues are normal in thickness. No paravertebral hematomas. No apical pneumothoraces. A prominent, simple appearing right-sided pleural effusion is seen, which measures water density IMPRESSION: Negative for acute cervical spine fracture. Prominent right-sided pleural effusion. Underlying degenerative changes are seen. Note: Case discussed by telephone with Dr. Valenzuela at 5:04 p.m. [place] time on July 30, 2021. Dictated by: Chase Francois M.D. on 07/30/2021 at 17:07 Approved by: Chase Francois M.D. on 07/30/2021 at 17:10
--- NOTE | 2021-07-30 17:46 | DI.CT.S_ITS ---
PROCEDURE: CT HEAD/BRAIN WO CON INDICATIONS: FALL TECHNIQUE: Noncontrast 4.5 mm thick angled axial sections acquired from the foramen magnum to the vertex, with coronal and sagittal reformats. For radiation dose reduction, the following was used: automated exposure control, adjustment of mA and/or kV according to patient size. COMPARISON: [facility], CT, CT CERVICAL SPINE WO CON, 07/30/2021, 17:47. [facility], CT, CT HEAD/BRAIN WO CON, 12/15/2020, 23:43. FINDINGS: Image quality: Excellent. CSF spaces: Basal cisterns are patent. No extra-axial fluid collections. The ventricles are symmetric in size and shape. Brain: Intraparenchymal hemorrhage is seen involving left occipital lobe, which measures up to 1.4 cm, with apparent surrounding edema. A small amount of regional subarachnoid hemorrhage can be seen. No definite additional areas of intracranial hemorrhage are seen. No intracranial masses. There is cerebral volume loss for age, with resultant ventricular and sulcal prominence. There are periventricular and deep white matter chronic small vessel ischemic changes. There is intracranial internal carotid artery atherosclerosis. Skull and face: There is soft tissue hematoma seen involving the right posterior occipital region, as on series 2, image 24, without an associated calvarial fracture. Calvarium and visualized facial bones appear intact, without suspicious lesions. Sinuses: Visualized sinuses and mastoids are clear. IMPRESSION: LEFT occipital lobe intraparenchymal hemorrhage, with likely associated subarachnoid hemorrhage. RIGHT posterior occipital scalp hematoma, without an associated fracture. Note: Critical finding of acute intracranial hemorrhage discussed by telephone with Dr. Valenzuela at 5:04 p.m. [place] time on July 30, 2021. Dictated by: Chase Francois M.D. on 07/30/2021 at 17:01 Approved by: Chase Francois M.D. on 07/30/2021 at 17:05
--- NOTE | 2021-07-30 17:51 | DI.CT.S_ITS ---
PROCEDURE: CT CHEST ABD PEL W CON INDICATIONS: PAIN AFTER FALL- MODIFIED TRAUMA TECHNIQUE: After the administration of intravenous contrast, 5 mm thick sections acquired from the lung apices to the symphysis. 2.5 mm thick coronal and sagittal reformats were acquired. Additional 7 mm thick coronal maximum intensity projection (MIP) reformats acquired through the lungs. Optional 10-minute delayed imaging may be performed from the kidneys to the bladder. For radiation dose reduction, the following was used: automated exposure control, adjustment of mA and/or kV according to patient size. COMPARISON: [facility], CT, CT CHEST ABD PEL W CON, 12/15/2020, 23:43. FINDINGS: Image quality: Diagnostic CHEST: Lungs: No pulmonary contusions or lacerations. Stable 1.1 cm anterior right upper lobe mass. Stable appearance of nodular appearance of the right major fissure. No acute airspace opacities. Interval increase in size of now moderate to large sized right pleural effusion. There is associated compressive atelectasis. Dependent atelectasis of the left hemithorax. There is also compressive atelectasis of the dependent portions of the right upper lobe inferiorly. Central and peripheral airways appear patent and normal in caliber. Mediastinum: No mediastinal hematomas. Heart size is normal. Moderate scattered atherosclerotic calcifications of the coronary arteries are noted. No pericardial effusion. Thoracic aorta and pulmonary arteries demonstrate normal size and enhancement. No mediastinal or hilar adenopathy. Esophagus is normal in caliber. No hiatal hernia. Chest wall: Multiple healing rib fracture deformities of the right side. Acute right anterolateral right 5th through 7th rib fractures. No subcutaneous emphysema. No axillary or supraclavicular adenopathy. Thyroid gland is unremarkable. ABDOMEN: Solid organs: Liver is normal in size and enhancement, without lacerations. Gallbladder is surgically absent. Biliary system is non-dilated. Pancreas enhances normally, without transection. Spleen is normal in size and enhancement, without lacerations. No adrenal hematomas. Both kidneys enhance normally, without hydronephrosis or lacerations. Peritoneum and bowel: No free fluid or air. Unenhanced bowel loops demonstrate normal wall thickness and caliber. Stable postsurgical changes from prior partial colonic resection and left upper quadrant ostomy. Nodes and vessels: No retroperitoneal or mesenteric adenopathy. Aorta and inferior vena cava are normal in size and enhancement. Scattered atherosclerotic calcifications of the abdominal aorta and iliac vessels without aneurysmal dilatation. Miscellaneous: No ventral hernias. PELVIS: Genitourinary: Bladder wall thickness is normal. Miscellaneous: No pelvic adenopathy.. Fat containing bilateral inguinal hernias without acute inflammation. Bones: Pelvic ring and hip joints appear intact. No vertebral compression fractures. Status post left total hip arthroplasty. IMPRESSION: 1. Acute anterolateral right 5th through 7th rib fractures. No pneumothorax. 2. Interval increase in size of now moderate-large sized right pleural effusion with associated compressive atelectasis. 3. Otherwise, no evidence for acute traumatic injuries to the hollow or solid organs. 4. Chronic findings as above. Dictated by: Jose Ernandez M.D. on 07/30/2021 at 18:33 Approved by: Jose Ernandez M.D. on 07/30/2021 at 18:44
--- NOTE | 2021-07-30 18:19 | ED.HEATRA ---
HPI - Head Injury General Chief complaint: Head Injury Stated complaint: Fall Time Seen by Provider: 07/30/21 17:47 Source: EMS Mode of arrival: EMS Limitations: no limitations History of Present Illness HPI Narrative: Patient is an 86-year-old male who is here for evaluation of injuries that he sustained when he fell. Patient arrives not on a backboard not in a cervical collar. He is independent living. Is a full code. Not on blood thinners. States that he tripped and fell forward landing on his head. Does not quite remember the incident. He is unsure if he lost consciousness. When he woke up he did have blood on his head. He also has right-sided chest wall pain. He denies any other symptoms to include neck pain or abdominal pain or hip pain. No upper extremity injuries. Related Data Home Medications Medication Instructions Recorded Confirmed aspirin 81 mg tablet,delayed 81 mg PO DAILY 10/10/19 12/16/20 release (Adult Low Dose Aspirin) losartan 25 mg tablet 25 mg PO DAILY 10/10/19 12/16/20 naproxen 375 mg tablet 375 mg PO BID PRN 10/10/19 12/16/20 pantoprazole 40 mg tablet,delayed 40 mg PO DAILY 10/10/19 12/16/20 release sertraline 50 mg tablet 50 mg PO DAILY 10/10/19 12/16/20 Previous Rx's Medication Instructions Recorded docusate sodium 100 mg tablet 100 mg PO BID #30 tab 12/16/20 hydrocodone 5 mg-acetaminophen 325 1 tab PO Q4-6H PRN #20 tab 12/16/20 mg tablet sennosides 8.6 mg capsule (senna) 8.6 mg PO BEDTIME PRN #30 cap 12/16/20 Allergies Allergy/AdvReac Type Severity Reaction Status Date / Time No Known Drug Allergies Allergy Unverified 10/10/19 08:34 Review of Systems Constitutional Constitutional: Denies fatigue, Denies fever(s) and Denies headache(s) Eyes Eyes: Denies change in vision ENT Ears, Nose, Mouth, and Throat: Denies vertigo, Denies dizziness, Denies headache(s) and Denies disequilibrium Comments: Hard of hearing that this is not new Cardiovascular Cardiovascular: Denies chest pain, Denies rapid heart rate and Denies dyspnea Respiratory Respiratory: Reports system reviewed and no additional complaints, except as documented, Denies cough, Reports pain on inspiration (Right-sided chest wall) and Denies dyspnea Gastrointestinal Gastrointestinal: Denies abdominal pain, Denies nausea and Denies vomiting Genitourinary Genitourinary: Denies dysuria Musculoskeletal Musculoskeletal: Denies abnormal gait, Denies arthralgias, Denies back pain, Denies myalgias and Denies arthralgias Integumentary/Breasts Comments: Cut to forehead, abrasion to back of head Neurologic Neurologic: Denies abnormal gait, Denies behavioral changes, Denies confusion, Denies vertigo, Denies dizziness, Denies headache(s) and Denies disequilibrium Psychiatric Psychiatric: Denies behavioral changes and Denies confusion Endocrine Endocrine: Denies fatigue Hematologic/Lymphatic On Anticoagulants: No Allergic/Immunologic Allergic/Immunologic: Reports system reviewed and no additional complaints, except as documented Patient History Medical History Contusion of rib on left side Contusion of right hand Essential hypertension GERD (gastroesophageal reflux disease) History of anal cancer History of squamous cell carcinoma Surgical History (Updated 12/16/20 @ 06:34 by PILLO LagunasJORGE LUIS) History of cataract surgery History of colostomy History of knee surgery History of left hip replacement Family History (Updated 12/16/20 @ 06:35 by FEMI Lagunas) Mother Diabetes mellitus Father No problems noted. Brother Heart disease Social History household members: other Smoking Status: Never smoker alcohol intake: former Smoking Status: Never smoker alcohol intake frequency: holidays/special occasions only Substance Use Type: does not use Exam Initial Vital Signs Initial Vital Signs: Vital Signs Temperature 97.6 F 07/30/21 18:14 Pulse Rate 102 H 07/30/21 18:14 Respiratory Rate 16 07/30/21 18:14 Blood Pressure 168/86 H 07/30/21 18:14 Pulse Oximetry 94 07/30/21 18:14 Const General: cooperative, comfortable, well developed, No frail appearing and No ill appearing Limitations: mental status not altered HENKS Head: abrasion (Posterior, top of head), contusion (Posterior, top of head) and laceration (Forehead) Nose: external nose normal Face and sinus: normal facial exam and no maxillary instability Mouth: oral mucosae normal Teeth and gingiva: dentition normal Eyes General: appearance normal, both eyes and all related structures Chest Chest: normal inspection of the chest, No crepitus and tenderness (Right-sided anterior chest wall) Resp Effort & Inspection: normal respiratory effort Auscultation: diminished lung sounds (Right) Cardio Rate: tachycardic Rhythm: regular rhythm Pulses: radial pulses present bilaterally GI Inspection: non-distended Palpation: soft Other: Colostomy bag left-sided abdomen Back/Spine/Pelvis Cervical Spine: No cervical spinal tenderness Thoracic/Lumbar Spine: No thoracic spinal tenderness and No lumbar spinal tenderness Skin Other: Abrasion and laceration to the forehead, has an abrasion to the back of the head, has an abrasion to his left hand Neuro General: patient alert, patient awake and moves all extremities Speech: speech normal Extrem General: capillary refill normal Other: Bilateral shoulders unremarkable, bilateral upper extremities unremarkable, pelvis stable. Lower extremities unremarkable Psych Appearance: grossly normal and well kempt Procedures Laceration Repair Laceration 1: Site: scalp (Forehead) Size (cm): 4 Description: linear Depth: simple, single layer Local Anesthetic: lidocaine 1% and with bicarb Amount of anesthesia used (mL): 5 Skin layer closed with: sridevi (5) Scores GCS Gambier coma scale eye opening: Spontaneous Charlette coma scale verbal response: Orientated [place] coma scale motor response: Obey commands Charlette coma scale total score: 15 Course Orders Ordered: ED Orders 07/30/21 17:46 CT cervical spine wo con Stat CT head/brain wo con Stat 07/30/21 17:47 EKG-12 Lead Stat 07/30/21 17:51 CT chest abd pel w con Stat 07/30/21 18:11 COVID19 -Nasal swab/Pre-Proc Stat Complete Blood Count AUTO DIFF Stat Comprehensive Metabolic Panel Stat Ethanol (ETOH) Stat Lipase Stat Partial Thromboplastin Time Stat Prothrombin Time INR Stat Troponin & CK Cardiac Panel Stat Type and Screen Stat Discontinued Medications Bacitracin (Bacitracin Oint 0.9 Gm Pckt) 1 applic TOP NOW ONE Stop: 07/30/21 19:37 Lidocaine/Sodium Bicarbonate (Lido 1%/Sod Bicarb 8.4% (10ml) 10 Ml Syringe) 10 ml INJ NOW ONE Stop: 07/30/21 18:20 Last Admin: 07/30/21 18:30 Dose: 10 ml Documented by: NATALIE Vital Signs Vital signs: Vital Signs - 8 hr 07/30/21 18:14 07/30/21 18:18 07/30/21 18:19 Temperature 97.6 F Pulse Rate 102 H 101 H 101 H Respiratory Rate 16 22 22 Blood Pressure 168/86 H 169/82 H Pulse Oximetry 94 92 92 07/30/21 18:30 07/30/21 18:31 07/30/21 18:45 Temperature Pulse Rate 101 H 102 H 104 H Respiratory Rate 23 20 31 H Blood Pressure 154/86 H 153/91 H Pulse Oximetry 92 91 90 L 07/30/21 19:00 07/30/21 19:15 Temperature Pulse Rate 103 H 101 H Respiratory Rate 30 H 21 Blood Pressure 154/86 H 146/86 H Pulse Oximetry 92 92 MDM - Head Injury Medical Records Attestation: I reviewed the patient's medical records. Lab Data Attestation: I reviewed the patient's lab results. Result diagrams: 07/30/21 18:11 07/30/21 18:11 Labs: Lab Results 07/30/21 07/30/21 07/30/21 Range/Units 18:11 18:11 18:11 WBC 9.1 (4.5-11.0) X10^3/uL RBC 4.71 (4.5-5.9) X10^6/uL Hgb 13.4 L (13.5-17.5) g/dL Hct 40.0 L (41-53) % MCV 84.9 (80-100) fL MCH 28.4 (26-34) PG MCHC 33.4 (30-36) % RDW 13.9 (11.6-14.8) % Plt Count 167 (150-400) X10^3/uL Neut % (Auto) 86.9 H (50-75) % Lymph % (Auto) 6.9 L (25-40) % [place] % (Auto) 5.7 (3-14) % Eos % (Auto) 0.0 L (2-4) % Baso % (Auto) 0.5 (0-2) % Neut # (Auto) 7900 H (9709-2368) /uL Lymph # (Auto) 600 L (6543-5213) /uL [place] # (Auto) 500 (0-900) /uL Eos # (Auto) 0 (0-450) /uL Baso # (Auto) 0 (0-100) /uL PT 12.3 (10.1-12.7) SECONDS INR 1.1 (0.9-1.3) APTT 27 (26.4-36.2) SECONDS Sodium 134 L (137-145) mmol/L Potassium 4.5 (3.4-5.1) mmol/L Chloride 104 (98-107) mmol/L Carbon Dioxide 23 (22-32) mmol/L BUN 22 H (9-20) mg/dL Creatinine 0.89 (0.66-1.25) mg/dL Estimated GFR > 60.0 (>60) mL/min BUN/Creatinine Ratio 24.7 H (6-22) Glucose 115 H (80-110) mg/dL Calcium 9.1 (8.4-10.2) mg/dL Total Bilirubin 1.0 (0.2-1.3) mg/dL AST 34 (17-59) IU/L ALT 17 (<50) IU/L Alkaline Phosphatase 42 (38-126) U/L Total Creatine Kinase 145 (55-170) U/L CK-MB (CK-2) 1.85 (<2.37) ng/mL CK-MB (CK-2) Rel Index 1.3 L (1.5-5.0) % Troponin I < 0.012 (0.01-0.034) ng/mL Total Protein 6.7 (6.3-8.2) g/dL Albumin 3.7 (3.5-5.0) g/dL Globulin 3.0 (1.7-4.1) g/dL Albumin/Globulin Ratio 1.2 (1.0-2.8) Lipase 22 L (23-300) U/L Ethyl Alcohol < 10 ( - 10) mg/dL SARS-CoV-2 (PCR) (Negative) 07/30/21 Range/Units 18:11 WBC (4.5-11.0) X10^3/uL RBC (4.5-5.9) X10^6/uL Hgb (13.5-17.5) g/dL Hct (41-53) % MCV (80-100) fL MCH (26-34) PG MCHC (30-36) % RDW (11.6-14.8) % Plt Count (150-400) X10^3/uL Neut % (Auto) (50-75) % Lymph % (Auto) (25-40) % [place] % (Auto) (3-14) % Eos % (Auto) (2-4) % Baso % (Auto) (0-2) % Neut # (Auto) (9568-0757) /uL Lymph # (Auto) (6421-2848) /uL [place] # (Auto) (0-900) /uL Eos # (Auto) (0-450) /uL Baso # (Auto) (0-100) /uL PT (10.1-12.7) SECONDS INR (0.9-1.3) APTT (26.4-36.2) SECONDS Sodium (137-145) mmol/L Potassium (3.4-5.1) mmol/L Chloride (98-107) mmol/L Carbon Dioxide (22-32) mmol/L BUN (9-20) mg/dL Creatinine (0.66-1.25) mg/dL Estimated GFR (>60) mL/min BUN/Creatinine Ratio (6-22) Glucose (80-110) mg/dL Calcium (8.4-10.2) mg/dL Total Bilirubin (0.2-1.3) mg/dL AST (17-59) IU/L ALT (<50) IU/L Alkaline Phosphatase (38-126) U/L Total Creatine Kinase (55-170) U/L CK-MB (CK-2) (<2.37) ng/mL CK-MB (CK-2) Rel Index (1.5-5.0) % Troponin I (0.01-0.034) ng/mL Total Protein (6.3-8.2) g/dL Albumin (3.5-5.0) g/dL Globulin (1.7-4.1) g/dL Albumin/Globulin Ratio (1.0-2.8) Lipase (23-300) U/L Ethyl Alcohol ( - 10) mg/dL SARS-CoV-2 (PCR) Negative (Negative) Imaging Data CT - cervical spine: Radiologist's Impression: [address] [place] [address] CT Scan Report Signed Patient: Blake Perez MR#: [id number] : 1935 Acct:[id number] Age/Sex: 86 / M Date of Service: 07/30/21 Loc: ED Accession Number: [id number] ?? Procedure: CT cervical spine wo con Ordering Provider: Pam Palomino D.O. PROCEDURE:? CT CERVICAL SPINE WO CON ? INDICATIONS:? PAIN AFTER FALL ? TECHNIQUE:? Noncontrast 3 mm thick sections acquired from the skull base to the T4 level.? Sagittal and coronal reformats were then constructed.? For radiation dose reduction, the following was used:? automated exposure control, adjustment of mA and/or kV according to patient size.? ? COMPARISON:? [facility], CT, CT HEAD/BRAIN WO CON, 07/30/2021, 17:47.? [facility], CT, CT CERVICAL SPINE WO CON, 12/15/2020, 23:43. ? FINDINGS:? Image quality:? Excellent.? ? Bones:? No fractures or dislocations.? Visualized superior ribs are intact.? ? Degenerative changes are seen throughout, with at least moderate disc space narrowing at C3-C4 and C5-C6.? Mild retrolisthesis is seen at C3-C4. Focal degenerative change is seen involving the C1-C2 interface anteriorly.? Milder degenerative changes are seen elsewhere.? Age-appropriate osteopenia is seen. ? Soft tissues:? Prevertebral soft tissues are normal in thickness.? No paravertebral hematomas.? No apical pneumothoraces.? A prominent, simple appearing right-sided pleural effusion is seen, which measures water density ? ? IMPRESSION:? Negative for acute cervical spine fracture. ? Prominent right-sided pleural effusion. ? Underlying degenerative changes are seen.? ? Note: Case discussed by telephone with Dr. Valenzuela at 5:04 p.m. [place] time on July 30, 2021. ? ? Dictated by: Chase Francois M.D. on 07/30/2021 at 17:07 ? ? Approved by: Chase Francois M.D. on 07/30/2021 at 17:10? CT scan - head: Radiologist's Impression: [address] [address] [address] Scan Report Signed Patient: Blake Perez MR#: [id number] : 1935 Acct:[id number] Age/Sex: 86 / M Date of Service: 07/30/21 Loc: ED Accession Number: [id number] ?? Procedure: CT head/brain wo con Ordering Provider: Pam Palomino D.O. PROCEDURE:? CT HEAD/BRAIN WO CON ? INDICATIONS:? FALL ? TECHNIQUE:? Noncontrast 4.5 mm thick angled axial sections acquired from the foramen magnum to the vertex, with coronal and sagittal reformats.? For radiation dose reduction, the following was used:? automated exposure control, adjustment of mA and/or kV according to patient size.? ? COMPARISON:? [facility], CT, CT CERVICAL SPINE WO CON, 07/30/2021, 17:47.? [facility], CT, CT HEAD/BRAIN WO CON, 12/15/2020, 23:43. ? FINDINGS:? Image quality:? Excellent.? ? CSF spaces:? Basal cisterns are patent.? No extra-axial fluid collections.? The ventricles are symmetric in size and shape.? ? Brain:? Intraparenchymal hemorrhage is seen involving left occipital lobe, which measures up to 1.4 cm, with apparent surrounding edema.? A small amount of regional subarachnoid hemorrhage can be seen.? No definite additional areas of intracranial hemorrhage are seen. ? No intracranial masses.? There is cerebral volume loss for age, with resultant ventricular and sulcal prominence.? There are periventricular and deep white matter chronic small vessel ischemic changes.? There is intracranial internal carotid artery atherosclerosis.? ? Skull and face:? There is soft tissue hematoma seen involving the right posterior occipital region, as on series 2, image 24, without an associated calvarial fracture.? Calvarium and visualized facial bones appear intact, without suspicious lesions.? ? Sinuses:? Visualized sinuses and mastoids are clear.? ? IMPRESSION:? LEFT occipital lobe intraparenchymal hemorrhage, with likely associated subarachnoid hemorrhage. ? RIGHT posterior occipital scalp hematoma, without an associated fracture. ? Note:? Critical finding of acute intracranial hemorrhage discussed by telephone with Dr. Valenzuela at 5:04 p.m. [place] time on July 30, 2021.? ? ? Dictated by: Chase Francois M.D. on 07/30/2021 at 17:01 ? ? Approved by: Chase Francois M.D. on 07/30/2021 at 17:05?? CT chest/abd/pelvis: Radiologist's Impression: [address] [address] [address] Scan Report Signed Patient: Blake Perez MR#: [id number] : 1935 Acct:[id number] Age/Sex: 86 / M Date of Service: 07/30/21 Loc: ED Accession Number: [id number] ?? Procedure: CT chest abd pel w con Ordering Provider: Pam Palomino D.O. PROCEDURE:? CT CHEST ABD PEL W CON ? INDICATIONS:? PAIN AFTER FALL- MODIFIED TRAUMA ? TECHNIQUE:? After the administration of intravenous contrast, 5 mm thick sections acquired from the lung apices to the symphysis.? 2.5 mm thick coronal and sagittal reformats were acquired. ?Additional 7 mm thick coronal maximum intensity projection (MIP) reformats acquired through the lungs.? Optional 10-minute delayed imaging may be performed from the kidneys to the bladder.? For radiation dose reduction, the following was used:? automated exposure control, adjustment of mA and/or kV according to patient size.? ? COMPARISON:? [facility], CT, CT CHEST ABD PEL W CON, 12/15/2020, 23:43. ? FINDINGS:? Image quality:? Diagnostic ? CHEST:? Lungs:? No pulmonary contusions or lacerations.? Stable 1.1 cm anterior right upper lobe mass.? Stable appearance of nodular appearance of the right major fissure.? No acute airspace opacities.? Interval increase in size of now moderate to large sized right pleural effusion.? There is associated compressive atelectasis.? Dependent atelectasis of the left hemithorax.? There is also compressive atelectasis of the dependent portions of the right upper lobe inferiorly.? Central and peripheral airways appear patent and normal in caliber.? ? Mediastinum:? No mediastinal hematomas.? Heart size is normal.? Moderate scattered atherosclerotic calcifications of the coronary arteries are noted.? No pericardial effusion.? Thoracic aorta and pulmonary arteries demonstrate normal size and enhancement. ?No mediastinal or hilar adenopathy.? Esophagus is normal in caliber.? No hiatal hernia.? ? ? Chest wall:? Multiple healing rib fracture deformities of the right side.? Acute right anterolateral right 5th through 7th rib fractures.? No subcutaneous emphysema.? No axillary or supraclavicular adenopathy.? Thyroid gland is unremarkable.? ? ? ABDOMEN:? Solid organs:? Liver is normal in size and enhancement, without lacerations.? Gallbladder is surgically absent.? Biliary system is non-dilated.? Pancreas enhances normally, without transection.? Spleen is normal in size and enhancement, without lacerations.? No adrenal hematomas.? Both kidneys enhance normally, without hydronephrosis or lacerations. ? ? Peritoneum and bowel:? No free fluid or air.? Unenhanced bowel loops demonstrate normal wall thickness and caliber.? Stable postsurgical changes from prior partial colonic resection and left upper quadrant ostomy. ? Nodes and vessels:? No retroperitoneal or mesenteric adenopathy.? Aorta and inferior vena cava are normal in size and enhancement.? Scattered atherosclerotic calcifications of the abdominal aorta and iliac vessels without aneurysmal dilatation. ? Miscellaneous:? No ventral hernias.? ? ? PELVIS:? Genitourinary:? Bladder wall thickness is normal.? ? Miscellaneous:? No pelvic adenopathy..? Fat containing bilateral inguinal hernias without acute inflammation. ? Bones:? Pelvic ring and hip joints appear intact.? No vertebral compression fractures.? Status post left total hip arthroplasty. ? ? IMPRESSION:? ? 1. Acute anterolateral right 5th through 7th rib fractures.? No pneumothorax. ? 2. Interval increase in size of now moderate-large sized right pleural effusion with associated compressive atelectasis. ? 3. Otherwise, no evidence for acute traumatic injuries to the hollow or solid organs. ? 4. Chronic findings as above.? Dictated by: Jose Ernandez M.D. on 07/30/2021 at 18:33 ? ? Approved by: Jose Ernandez M.D. on 07/30/2021 at 18:44?? ECG Data Attestation: I personally reviewed and interpreted this ECG as follows: Interpretation: Sinus tachycardia Ventricular rate 101 First-degree AV block AK interval 212 milliseconds Incomplete right bundle branch block QRS 100 milliseconds Normal QTC Nonspecific ST T wave changes MDM Narrative Medical decision making narrative: Laceration of the forehead was closed as described above. He does have a GCS of 15 but is somewhat confused about what year it is. He does have to be reminded about the injuries that he has sustained. His extremities are unremarkable. Cervical spine unremarkable. CT scan of his chest and pelvis does show a right-sided pleural effusion however radiologist stated that this did not appear to be blood. Unsure if this is new. He is in no respiratory distress. Not hypoxic. Does have multiple right-sided rib fractures. No abnormalities noted on the C-spine. Rest of his extremities unremarkable. No abdominal tenderness. I did inform the patient of his injuries. Discussed the case with Dr. Seth with Trauma at [facility] who accepts the patient in transfer. Patient is stable for transport. Patient was made aware of the need for transfer. He did expressed understanding and agreement. Critical Care Time Critical Care Time Critical Care Time: Yes Total Critical Care Time: 35 Attestation: The high probability of a clinically significant, sudden or life threatening deterioration of the neurologic system(s) required my full and direct attention, intervention and personal management. The aggregate critical care time was 35 minutes. This time is in addition to time spent performing reported procedures but includes the following: [x] Data Review and interpretation [x] Patient assessment and monitoring of vital signs x Documentation x[] Medication orders and management Discharge Plan Departure Patient Disposition: [facility] Clinical Impression: Subarachnoid hemorrhage, Fracture, ribs, Intracerebral bleed, Laceration of skin Prescriptions: No Action losartan 25 mg tablet 25 mg PO DAILY 0RF sertraline 50 mg tablet 50 mg PO DAILY 0RF naproxen 375 mg tablet 375 mg PO BID PRN (Reason: Pain (Scale Score 1-3)) 0RF pantoprazole 40 mg tablet,delayed release (DR/EC) 40 mg PO DAILY 0RF aspirin [Adult Low Dose Aspirin] 81 mg tablet,delayed release (DR/EC) 81 mg PO DAILY 0RF hydrocodone-acetaminophen 5-325 mg Tablet 1 tab PO Q4-6H PRN (Reason: pain) Qty: 20 0RF docusate sodium 100 mg tablet 100 mg PO BID Qty: 30 0RF senna 8.6 mg capsule 8.6 mg PO BEDTIME PRN (Reason: constipation) Qty: 30 0RF Referrals: Aleksandr Morin MD [Physician] -
[2021-07-30 18:23] LABS: Add Manual Diff / Slide Review NO; Basophils Absolute Auto 0 /uL (0-100); Basophils Percent Auto 0.5 % (0-2); Eosinophils Absolute Auto 0 /uL (0-450); Hemoglobin 13.4 g/dL (13.5-17.5); Lymphocytes Absolute Auto 600 /uL (1100-4500); Lymphocytes Percent Auto 6.9 % (25-40); Mean Corpuscular HGB Conc 33.4 % (30-36); Mean Corpuscular Hemoglobin 28.4 PG (26-34); Mean Corpuscular Volume 84.9 fL (80-100); Monocytes Absolute Auto 500 /uL (0-900); Monocytes Percent Auto 5.7 % (3-14); Neutrophils Absolute Auto 7900 /uL (1500-7000); Neutrophils Percent Auto 86.9 % (50-75); Platelet Count 167 X10^3/uL (150-400); Red Blood Cell Count 4.71 X10^6/uL (4.5-5.9); Red Cell Distribution Width 13.9 % (11.6-14.8); White Blood Cell Count 9.1 X10^3/uL (4.5-11.0)
[2021-07-30] MEDS: LIDO 1%/SOD BICARB 8.4% (10ML) 10 ML SYRINGE INJ (18:30)
[2021-07-30 18:32] LABS: INR 1.1 (0.9-1.3); Prothrombin Time 12.3 SECONDS (10.1-12.7)
[2021-07-30 18:34] LABS: PTT Partial Thromboplastin Tim 27 SECONDS (26.4-36.2)
[2021-07-30 18:36] LABS: Alanine Aminotransferase 17 IU/L (<50); Albumin 3.7 g/dL (3.5-5.0); Albumin Globulin Ratio 1.2 (1.0-2.8); Alkaline Phosphatase 42 U/L (38-126); Aspartate Aminotransferase 34 IU/L (17-59); BUN Creatinine Ratio 24.7 (6-22); Blood Urea Nitrogen 22 mg/dL (9-20); Calcium 9.1 mg/dL (8.4-10.2); Carbon Dioxide 23 mmol/L (22-32); Chloride 104 mmol/L (98-107); Creatine Kinase 145 U/L (55-170); Estimated Glomerular Filt Rate > 60.0 mL/min (>60); Ethanol (ETOH) < 10 mg/dL; Glucose 115 mg/dL (80-110); Lipase 22 U/L (23-300); Sodium 134 mmol/L (137-145); Total Protein 6.7 g/dL (6.3-8.2)
[2021-07-30 18:40] LABS: Potassium 4.5 mmol/L (3.4-5.1)
[2021-07-30 18:42] LABS: COVID19 -Nasal RAPID Negative (Negative)
[2021-07-30 18:47] LABS: Troponin I < 0.012 ng/mL (0.01-0.034)
[2021-07-30 18:51] LABS: CKMB % Relative Index 1.3 % (1.5-5.0); Creatine Kinase MB 1.85 ng/mL (<2.37)
[2021-07-30 18:53] LABS: HEMOLYSIS 76 (0-50)
[2021-07-30] MEDS: BACITRACIN OINT 0.9 GM PCKT 1 APPLIC TOP (19:54)
== END 2021-07-30 19:59 | disposition short-term general hospital (02) ==
PROVIDERS: Emergency Medicine; Emergency Provider Emergency Medicine
DX: S06.6X9A Traumatic subarachnoid hemorrhage with loss of consciousness of unspecified duration, initial encounter (principal); S22.41XA Multiple fractures of ribs, right side, initial encounter for closed fracture; S01.81XA Laceration without foreign body of other part of head, initial encounter; I10 Essential (primary) hypertension; W01.198A Fall on same level from slipping, tripping and stumbling with subsequent striking against other object, initial encounter; Z20.822 Contact with and (suspected) exposure to COVID-19
CPT/HCPCS: 12013; 36415; 70450; 71260; 72125; 74177; 80053; 80320; 82550; 82553; 83690; 84484; 85025; 85610; 85730; 86850; 86900; 86901; 87635; 93005; 99284; 99291; C9803